=== PATIENT | female | born 1960 | race African-American/Black ===

== ENCOUNTER 2017-03-03 17:43 | Emergency (ER) | payer MEDICAID, OTHER ==
[~2017-03-03] VITALS: Ht 162.6 cm; Wt 140.0 kg
[~2017-03-03 17:43] MED LIST: HYDR25TA PO; MECL-127 PO
[2017-03-03] MEDS ORDERED: SODIUM CHLORIDE 0.9% 1,000 ML IV ONE (22:15)
[2017-03-03 22:25] VITALS: BP 123/88
[2017-03-03 23:16] LABS: BASOPHILS % 0.7 % (0.0-2.0); DIFFERENTIAL COMMENT 0; EOSINOPHILS % 1.5 % (0.0-5.0); HEMATOCRIT. 35.9 % (36.0-48.0); LYMPHOCYTES % 25.9 % (20.0-50.0); MEAN CORPUSCULAR HEMOGLOBIN 36.5 pg (28.0-32.0); MEAN CORPUSCULAR HGB CONC 33.4 g/dL (31.0-37.0); MEAN CORPUSCULAR VOLUME 109.3 fL (81.0-99.0); MEAN PLATELET VOLUME 6.9 fl (7.4-10.4); MONOCYTES % 11.5 % (2.0-8.0); NEUTROPHILS % 60.4 % (40.0-76.0); PLATELET 153 x1000/uL (130-400); RED BLOOD CELL COUNT 3.29 mill/uL (4.2-5.4); RED CELL DISTRIBUTION WIDTH 13.4 % (11.6-14.6); WHITE BLOOD COUNT 5.6 x1000/uL (4.5-11.0)
[2017-03-03 23:26] LABS: ALANINE AMINOTRANSFERASE 24 IU/L (13-61); ALBUMIN 3.1 g/dL (3.4-5.0); ANION GAP 13; CARBON DIOXIDE 25 mEq/L (21-32); CHLORIDE 110 mEq/L (98-107); INDEX HEMOLYSI 1 (1-3); INDEX ICTERIC 1 (1-4); INDEX LIPEMIC 1 (1-3); UREA NITROGEN BLOOD 6 mg/dL (7-21); eGFR > 60 mL/min (>60)
== END 2017-03-04 01:08 | disposition home or self-care (01) ==
LOC: ER 17:43
DX: S06.0X9A Concussion with loss of consciousness of unspecified duration, initial encounter (principal); Z79.899 Other long term (current) drug therapy; W01.0XXA Fall on same level from slipping, tripping and stumbling without subsequent striking against object, initial encounter; Y93.89 Activity, other specified; Y92.89 Other specified places as the place of occurrence of the external cause; Y99.8 Other external cause status
CPT/HCPCS: 36415; 70450; 80053; 85025; 96360; 96361; 99285; J7030

== ENCOUNTER 2023-09-15 08:36 | Inpatient (IN) | payer OTHER ==
[~2023-09-15] VITALS: Ht 161.5 cm; Wt 52.2 kg
[2023-09-15] VITALS (10 sets, daily range): BP systolic 96–125; BP diastolic 67–89; PULSE 83–113; RESP 10–28; TEMP 96.8
[2023-09-15] MEDS ORDERED: SODIUM CHLORIDE 0.9% 1000ML BAG (SEPSIS BOLUS) IV ONE (09:00)
[2023-09-15] MEDS ORDERED: MORPHINE SULFATE 2 MG/ML CPJ (NOT FOR IM USE) IV ONE (09:00)
[2023-09-15] MEDS ORDERED: ONDANSETRON HCL 4MG/2ML INJ IV ONE (09:00)
[2023-09-15 10:41] LABS: HEMATOCRIT. 29.1 % (36.0-48.0); HEMOGLOBIN. 9.9 g/dL (12.0-16.0); MEAN CORPUSCULAR HEMOGLOBIN 36.7 pg (28.0-32.0); MEAN PLATELET VOLUME 6.1 fl (7.4-10.4); PLATELET 189 x1000/uL (130-400); RED CELL DISTRIBUTION WIDTH 14.1 % (11.6-14.6)
[2023-09-15 10:51] LABS: CHLORIDE 99 mEq/L (98-107); INDEX HEMOLYSI 1 (1-3); INDEX ICTERIC 1 (1-4); INDEX LIPEMIC 1 (1-3); SODIUM 134 mEq/L (136-145); UREA NITROGEN BLOOD 17 mg/dL (7-21)
[2023-09-15 11:01] LABS: ALANINE AMINOTRANSFERASE 8 IU/L (13-61); ALBUMIN 1.7 g/dL (3.4-5.0); ASPARTATE AMINOTRANSFERASE 11 IU/L (15-37); BILIRUBIN TOTAL 1.2 mg/dL (0.1-1.0); CALCIUM 8.2 mg/dL (8.5-10.1); CARBON DIOXIDE 27 mEq/L (21-32); CREATININE 0.4 mg/dL (0.6-1.3); GLUCOSE 91 mg/dL (70-105); PROTEIN TOTAL 4.8 g/dL (6.0-8.3); TROPONIN I HIGH SENSITIVITY 4 ng/L (<54)
[2023-09-15 11:02] LABS: DIFFERENTIAL COMMENT 1
[2023-09-15] MEDS ORDERED: LIDOCAINE HCL 1% 10 MG/ML 10ML VIAL ONE (11:09)
[2023-09-15 11:14] LABS: POTASSIUM 2.4 mEq/L (3.5-5.1)
[2023-09-15] MEDS ORDERED: POTASSIUM CHLORIDE INJ 40 MEQ in DEXT 5% WATER 250 ML IV ONE (11:30)
[2023-09-15] MEDS: KCL 20MEQ/100ML X 2 FOR TOTAL KCL 40MEQ/200ML IV SCH ×2 (12:06→13:45)
[2023-09-15 12:10] LABS: PLATELET ESTIMATE NORMAL
[2023-09-15 12:49] LABS: CLARITY URINE CLEAR (CLEAR); COLOR URINE DARK YELLOW (YELLOW); GLUCOSE URINE NEGATIVE (NEGATIVE); KETONES URINE NEGATIVE (NEGATIVE); LEUKOCYTE ESTERASE URINE 1+ (NEGATIVE); NITRITE URINE POSITIVE (NEGATIVE); OCCULT BLOOD URINE NEGATIVE (NEGATIVE); PROTEIN URINE 2+ (NEGATIVE); SPECIFIC GRAVITY URINE 1.033 (1.005-1.030)
[2023-09-15 12:49] LABS: LACTIC ACID 2.2 mmol/L (0.4-2.0)
[2023-09-15 12:51] LABS: SQUAMOUS EPITHELIAL CELL URINE NONE SEEN /lpf (RARE/1+); YEAST URINE NONE SEEN
[2023-09-15] MEDS ORDERED: NOREPINEPHRINE 8MG/250ML PMX 250 ML IV STA (13:08)
[2023-09-15 13:19] LABS: BACTERIA URINE FEW; RBC URINE 0-2 /hpf (0-2); WBC URINE 0-2 /hpf (0-2)
[2023-09-15] MEDS ORDERED: BUPIVACAINE HCL/PF 0.5% (5MG/ML) 10ML ONE (16:13)
[2023-09-15] MEDS ORDERED: ONDANSETRON HCL 4MG/2ML INJ ONE (16:18)
[2023-09-15] MEDS ORDERED: DEXAMETHASONE 4MG/ML 1ML VIAL ONE (16:18)
[2023-09-15] MEDS ORDERED: CEFAZOLIN SODIUM 1000MG/VIAL ONE (16:18)
[2023-09-15] MEDS ORDERED: ROCURONIUM BROMIDE 10MG/ML VIAL 5ML IV ONE ×2 (16:18→16:23)
[2023-09-15] MEDS ORDERED: METOCLOPRAMIDE HCL 10MG/2ML VIAL ONE (16:18)
[2023-09-15] MEDS ORDERED: NEOSTIGMINE METHYLSULFATE 1MG/ML 10 ML VIAL ONE (16:19)
[2023-09-15] MEDS ORDERED: GLYCOPYRROLATE 0.2 MG/ML 2ML VIAL ONE (16:20)
[2023-09-15] MEDS ORDERED: PHENYLEPHRINE HCL 10 MG/ML 1ML (IV VIAL) IV ONE (16:20)
[2023-09-15] MEDS ORDERED: PROPOFOL 200MG/20ML VIAL IV ONE (16:20)
[2023-09-15] MEDS ORDERED: FENTANYL CITRATE/PF 50MCG/ML 2ML VIAL ONE (16:20)
[2023-09-15] MEDS ORDERED: LIDOCAINE HCL 1% 20ML VIAL (Pyxis) INJ ONE (16:21)
[2023-09-15] MEDS ORDERED: HYDROMORPHONE HCL/PF 2MG/ML CPJ ONE (16:22)
[2023-09-15] MEDS ORDERED: ALBUMIN HUMAN 12.5G/250ML (5%) IV ONE ×2 (17:32→19:07)
[2023-09-15] MEDS ORDERED: MORPHINE SULFATE 4 MG/ML CPJ (NOT FOR IM USE) IV PRN (19:00)
[2023-09-15] MEDS ORDERED: ONDANSETRON HCL 4MG/2ML INJ IV PRN (19:00)
[2023-09-15] MEDS ORDERED: MORPHINE SULFATE 2 MG/ML CPJ (NOT FOR IM USE) IV PRN (19:00)
[2023-09-15] MEDS ORDERED: NALOXONE HCL 0.4MG/ML VIAL IV PRN (19:00)
[2023-09-15] MEDS ORDERED: PROPOFOL 10MG/ML 100ML 100 ML IV PRN ×2 (19:30→22:15)
[2023-09-15] MEDS ORDERED: HYDROMORPHONE HCL/PF 2MG/ML CPJ IV PRN (19:30)
[2023-09-15] MEDS ORDERED: FENTANYL CITRATE/PF 50MCG/ML 2ML VIAL IV PRN (19:30)
[2023-09-15] MEDS ORDERED: DEXT 5%/0.45% NACL KCL 20MEQ/L 1,000 ML IV SCH (20:00)
[2023-09-15 20:17] LABS: BG BASE EXCESS -12.2 mmol/L (-2.0-2.0); BG CARBOXYHEMOGLOBIN 0.4 % (0.5-1.5); BG DEOXYHEMOGLOBIN 1.4 % (0.0-5.0); BG FRACTION INSPIRED OXYGEN 50; BG HCO3 ACT 17.4 mmol/L (22.0-26.0); BG METHEMOGLOBIN 0.7 % (0.0-1.5); BG OXYGEN SATURATION 98.6 % (92.0-98.5); BG OXYHEMOGLOBIN 97.5 % (94.0-97.0); BG PCO2 62.6 mmHg (35.0-45.0); BG PH 7.063 (7.350-7.450); BG PO2 195.4 mmHg (75.0-100.0); BG SAMPLE SITE RIGHT FEMORAL; BG TOTAL HEMOGLOBIN 7.7 g/dL (12.0-18.0); BG TOTAL RESPIRATORY RATE 10 b/min
[2023-09-15] MEDS ORDERED: SODIUM BICARBONATE 8.4% 1 MEQ/ML 50ML SYR IV NR (20:45)
[2023-09-15 21:33] LABS: BG VENT MODE VENT - SIMV
[2023-09-15] MEDS ORDERED: IPRATROPIUM/ALBUTEROL 0.5-3(2.5)MG/3ML NEB HHN PRN (22:00)
[2023-09-15 23:17] LABS: BG BASE EXCESS -2.5 mmol/L (-2.0-2.0); BG CARBOXYHEMOGLOBIN 0.3 % (0.5-1.5); BG FRACTION INSPIRED OXYGEN 40; BG HCO3 ACT 20.7 mmol/L (22.0-26.0); BG METHEMOGLOBIN 0.4 % (0.0-1.5); BG OXYHEMOGLOBIN 98.3 % (94.0-97.0); BG PCO2 29.1 mmHg (35.0-45.0); BG PH 7.469 (7.350-7.450); BG PO2 206.3 mmHg (75.0-100.0); BG SAMPLE SITE RIGHT BRACHIAL; BG VENT MODE VENT - AC
[2023-09-15 23:47] LABS: CALCIUM 7.1 mg/dL (8.5-10.1); CHLORIDE 110 mEq/L (98-107); INDEX HEMOLYSI 2 (1-3); INDEX ICTERIC 1 (1-4); INDEX LIPEMIC 1 (1-3); SODIUM 141 mEq/L (136-145)
[2023-09-15 23:53] LABS: CARBON DIOXIDE 22 mEq/L (21-32); CREATININE 0.3 mg/dL (0.6-1.3); GLUCOSE 104 mg/dL (70-105); UREA NITROGEN BLOOD 15 mg/dL (7-21)
[2023-09-16] VITALS (51 sets, daily range): BP systolic 87–136; BP diastolic 66–97; PULSE 85–131; RESP 15–28; TEMP 97.4–98.8; O2SAT 98
[2023-09-16] MEDS: PANTOPRAZOLE SODIUM 40 MG/VIAL IV SCH ×2 (00:01→09:37)
[2023-09-16 00:06] LABS: HEMATOCRIT. 23.7 % (36.0-48.0); HEMOGLOBIN. 7.6 g/dL (12.0-16.0); MEAN CORPUSCULAR HEMOGLOBIN 36.2 pg (28.0-32.0); MEAN CORPUSCULAR HGB CONC 32.3 g/dL (31.0-37.0); MEAN CORPUSCULAR VOLUME 112.1 fL (81.0-99.0); MEAN PLATELET VOLUME 6.5 fl (7.4-10.4); PLATELET 135 x1000/uL (130-400); RED BLOOD CELL COUNT 2.11 mill/uL (4.2-5.4); RED CELL DISTRIBUTION WIDTH 14.6 % (11.6-14.6); WHITE BLOOD COUNT 2.2 x1000/uL (4.5-11.0)
[2023-09-16 00:13] LABS: DIFFERENTIAL COMMENT 1
[2023-09-16 00:55] LABS: PLATELET ESTIMATE NORMAL
[2023-09-16] MEDS: IPRATROPIUM/ALBUTEROL 0.5-3(2.5)MG/3ML NEB HHN SCH ×4 (01:45→20:14)
[2023-09-16 05:54] LABS: HEMATOCRIT. 22.7 % (36.0-48.0); HEMOGLOBIN. 7.4 g/dL (12.0-16.0); MEAN CORPUSCULAR HEMOGLOBIN 35.8 pg (28.0-32.0); MEAN CORPUSCULAR HGB CONC 32.7 g/dL (31.0-37.0); MEAN CORPUSCULAR VOLUME 109.5 fL (81.0-99.0); MEAN PLATELET VOLUME 6.8 fl (7.4-10.4); PLATELET 113 x1000/uL (130-400); RED BLOOD CELL COUNT 2.08 mill/uL (4.2-5.4); RED CELL DISTRIBUTION WIDTH 14.1 % (11.6-14.6)
[2023-09-16 05:58] LABS: CHLORIDE 109 mEq/L (98-107); INDEX HEMOLYSI 1 (1-3); INDEX ICTERIC 1 (1-4); INDEX LIPEMIC 1 (1-3); POTASSIUM 2.9 mEq/L (3.5-5.1); SODIUM 140 mEq/L (136-145)
[2023-09-16 06:04] LABS: CALCIUM 7.3 mg/dL (8.5-10.1); CARBON DIOXIDE 22 mEq/L (21-32); CREATININE 0.4 mg/dL (0.6-1.3); GLUCOSE 136 mg/dL (70-105); TRIGLYCERIDE 40 mg/dL (0-150); UREA NITROGEN BLOOD 13 mg/dL (7-21)
[2023-09-16 06:09] LABS: DIFFERENTIAL COMMENT 1
[2023-09-16] MEDS: DEXT 5%/0.45% NACL KCL 20MEQ/L 1,000 ML IV SCH ×2 (07:30→18:30)
[2023-09-16 08:24] LABS: BG BASE EXCESS -1.5 mmol/L (-2.0-2.0); BG CARBOXYHEMOGLOBIN 0.3 % (0.5-1.5); BG DEOXYHEMOGLOBIN 1.4 % (0.0-5.0); BG HCO3 ACT 21.5 mmol/L (22.0-26.0); BG METHEMOGLOBIN 0.3 % (0.0-1.5); BG OXYGEN SATURATION 98.6 % (92.0-98.5); BG PCO2 29.7 mmHg (35.0-45.0); BG PH 7.478 (7.350-7.450); BG PO2 152.4 mmHg (75.0-100.0); BG SAMPLE SITE RIGHT BRACHIAL; BG TOTAL HEMOGLOBIN 8.6 g/dL (12.0-18.0); BG VENT MODE VENT - AC
[2023-09-16 12:59] LABS: NUCLEATED RED BLOOD CELLS 1 /100 WBC
[2023-09-16 13:01] LABS: PLATELET ESTIMATE DECREASED
[2023-09-16] MEDS ORDERED: POTASSIUM CHLORIDE INJ 40 MEQ in DEXT 5% WATER 250 ML IV ONE (13:30)
[2023-09-16 13:45] LABS: BG BASE EXCESS -1.8 mmol/L (-2.0-2.0); BG CARBOXYHEMOGLOBIN 0.2 % (0.5-1.5); BG HCO3 ACT 21.2 mmol/L (22.0-26.0); BG METHEMOGLOBIN 0.4 % (0.0-1.5); BG OXYHEMOGLOBIN 97.4 % (94.0-97.0); BG PCO2 29.8 mmHg (35.0-45.0); BG PH 7.471 (7.350-7.450); BG PO2 139.8 mmHg (75.0-100.0); BG SAMPLE SITE RIGHT BRACHIAL; BG TOTAL HEMOGLOBIN 9.6 g/dL (12.0-18.0); BG VENT MODE VENT - CPAP
[2023-09-16] MEDS: KCL 20MEQ/100ML X 2 FOR TOTAL KCL 40MEQ/200ML IV SCH ×2 (16:00→18:53)
[2023-09-16 17:43] LABS: HEPATITIS B SURFACE ANTIGEN NEGATIVE
[2023-09-16 18:11] LABS: HEPATITIS C VIR.AB 0.07 INDEXVAL (0.00-0.80)
[2023-09-16 18:12] LABS: HEPATITIS B CORE AB IGM NEGATIVE
[2023-09-16 22:22] LABS: HEPATITIS A AB IGM NEGATIVE (NEGATIVE)
[2023-09-17] VITALS (11 sets, daily range): BP systolic 87–111; BP diastolic 55–72; PULSE 60–112; RESP 18–20; TEMP 96.4–98.4; O2SAT 96
[2023-09-17] MEDS: DEXT 5%/0.45% NACL KCL 20MEQ/L 1,000 ML IV SCH ×3 (01:04→23:30)
[2023-09-17] MEDS: IPRATROPIUM/ALBUTEROL 0.5-3(2.5)MG/3ML NEB HHN SCH ×4 (02:34→21:02)
[2023-09-17 07:21] LABS: CHLORIDE 111 mEq/L (98-107); INDEX HEMOLYSI 1 (1-3); INDEX ICTERIC 1 (1-4); INDEX LIPEMIC 1 (1-3); SODIUM 139 mEq/L (136-145)
[2023-09-17 07:23] LABS: HEMATOCRIT. 23.9 % (36.0-48.0); HEMOGLOBIN. 7.9 g/dL (12.0-16.0); MEAN CORPUSCULAR HEMOGLOBIN 33.6 pg (28.0-32.0); MEAN CORPUSCULAR VOLUME 101.7 fL (81.0-99.0); MEAN PLATELET VOLUME 7.1 fl (7.4-10.4); RED BLOOD CELL COUNT 2.35 mill/uL (4.2-5.4)
[2023-09-17 07:35] LABS: ALANINE AMINOTRANSFERASE 9 IU/L (13-61); ALBUMIN 1.5 g/dL (3.4-5.0); ASPARTATE AMINOTRANSFERASE 16 IU/L (15-37); BILIRUBIN TOTAL 0.8 mg/dL (0.1-1.0); CARBON DIOXIDE 21 mEq/L (21-32); CREATININE 0.3 mg/dL (0.6-1.3); GLUCOSE 80 mg/dL (70-105); PROTEIN TOTAL 4.2 g/dL (6.0-8.3); UREA NITROGEN BLOOD 11 mg/dL (7-21)
[2023-09-17 07:52] LABS: DIFFERENTIAL COMMENT 1; PHOSPHORUS 0.9 mg/dL (2.5-4.9)
[2023-09-17] MEDS: PANTOPRAZOLE SODIUM 40 MG/VIAL IV SCH (09:19)
[2023-09-17] MEDS ORDERED: SODIUM PHOS,M-BASIC-D-BASIC 20 MM in DEXT 5% WATER 243.3333 ML IV NR (09:30)
[2023-09-17 15:41] LABS: PLATELET 48 x1000/uL (130-400); PLATELET ESTIMATE MARKEDLY DECREASED
[2023-09-17] MEDS: CEFEPIME 2,000 MG in DEXT 5% WATER 100 ML IV SCH (16:13)
[2023-09-17] MEDS: METRONIDAZOLE 500 MG PREMIX 100 ML IV SCH (16:13)
[2023-09-17 21:11] LABS: D-DIMER 21.43 mg/L FEU (<0.50); INR 1.2; PROTHROMBIN TIME 12.3 sec (9.6-11.0)
[2023-09-18] VITALS (12 sets, daily range): BP systolic 98–112; BP diastolic 56–80; PULSE 87–126; RESP 18–20; TEMP 96.4–98.6
[2023-09-18] MEDS: METRONIDAZOLE 500 MG PREMIX 100 ML IV SCH ×3 (05:06→18:21)
[2023-09-18] MEDS: MICAFUNGIN 100 MG in SODIUM CHLORIDE 0.9% 100 ML IV SCH (05:10)
[2023-09-18] MEDS: CEFEPIME 2,000 MG in DEXT 5% WATER 100 ML IV SCH ×2 (06:44→18:21)
[2023-09-18] MEDS: IPRATROPIUM/ALBUTEROL 0.5-3(2.5)MG/3ML NEB HHN SCH ×3 (09:23→21:17)
[2023-09-18] MEDS: PANTOPRAZOLE SODIUM 40 MG/VIAL IV SCH (10:15)
[2023-09-18] MEDS: DEXT 5%/0.45% NACL KCL 20MEQ/L 1,000 ML IV SCH ×2 (10:15→18:22)
[2023-09-18 17:49] LABS: EOSINOPHILS % 0.6 % (0.0-5.0); HEMATOCRIT. 26.1 % (36.0-48.0); HEMOGLOBIN. 8.6 g/dL (12.0-16.0); LYMPHOCYTES % 8.2 % (20.0-50.0); MEAN CORPUSCULAR HEMOGLOBIN 33.7 pg (28.0-32.0); MEAN CORPUSCULAR HGB CONC 33.1 g/dL (31.0-37.0); MEAN CORPUSCULAR VOLUME 101.9 fL (81.0-99.0); MEAN PLATELET VOLUME 7.5 fl (7.4-10.4); MONOCYTES % 2.4 % (2.0-8.0); NEUTROPHILS % 88.8 % (40.0-76.0); RED BLOOD CELL COUNT 2.56 mill/uL (4.2-5.4); RED CELL DISTRIBUTION WIDTH 19.4 % (11.6-14.6); WHITE BLOOD COUNT 2.7 x1000/uL (4.5-11.0)
[2023-09-18 18:13] LABS: CHLORIDE 112 mEq/L (98-107); INDEX HEMOLYSI 1 (1-3); INDEX ICTERIC 1 (1-4); INDEX LIPEMIC 1 (1-3); POTASSIUM 3.5 mEq/L (3.5-5.1); SODIUM 140 mEq/L (136-145)
[2023-09-18 18:21] LABS: ALANINE AMINOTRANSFERASE 14 IU/L (13-61); ALBUMIN 1.4 g/dL (3.4-5.0); ASPARTATE AMINOTRANSFERASE 14 IU/L (15-37); BILIRUBIN TOTAL 1.1 mg/dL (0.1-1.0); CALCIUM 7.9 mg/dL (8.5-10.1); CARBON DIOXIDE 21 mEq/L (21-32); CREATININE 0.3 mg/dL (0.6-1.3); GLUCOSE 66 mg/dL (70-105); PROTEIN TOTAL 4.3 g/dL (6.0-8.3); UREA NITROGEN BLOOD 9 mg/dL (7-21)
[2023-09-18 18:30] LABS: DIFFERENTIAL COMMENT 1
[2023-09-18 18:34] LABS: PLATELET 17 x1000/uL (130-400)
[2023-09-19] VITALS (9 sets, daily range): BP systolic 100–112; BP diastolic 64–74; PULSE 86–109; RESP 16–20; TEMP 96.6–97.7; O2SAT 99
[2023-09-19] MEDS: IPRATROPIUM/ALBUTEROL 0.5-3(2.5)MG/3ML NEB HHN SCH ×4 (01:50→20:24)
[2023-09-19] MEDS: MICAFUNGIN 100 MG in SODIUM CHLORIDE 0.9% 100 ML IV SCH (02:48)
[2023-09-19] MEDS: METRONIDAZOLE 500 MG PREMIX 100 ML IV SCH ×3 (02:48→18:20)
[2023-09-19] MEDS: CEFEPIME 2,000 MG in DEXT 5% WATER 100 ML IV SCH ×2 (05:13→18:20)
[2023-09-19 06:41] LABS: HEMATOCRIT. 23.3 % (36.0-48.0); MEAN CORPUSCULAR HEMOGLOBIN 34.4 pg (28.0-32.0); MEAN CORPUSCULAR HGB CONC 34.1 g/dL (31.0-37.0); MEAN PLATELET VOLUME 8.7 fl (7.4-10.4); RED BLOOD CELL COUNT 2.31 mill/uL (4.2-5.4); RED CELL DISTRIBUTION WIDTH 19.1 % (11.6-14.6)
[2023-09-19 07:50] LABS: CHLORIDE 112 mEq/L (98-107); POTASSIUM 3.1 mEq/L (3.5-5.1); SODIUM 140 mEq/L (136-145)
[2023-09-19 07:58] LABS: ALANINE AMINOTRANSFERASE 13 IU/L (13-61); ALBUMIN 1.4 g/dL (3.4-5.0); ASPARTATE AMINOTRANSFERASE 12 IU/L (15-37); BILIRUBIN TOTAL 0.8 mg/dL (0.1-1.0); CALCIUM 8.1 mg/dL (8.5-10.1); CARBON DIOXIDE 21 mEq/L (21-32); CREATININE 0.3 mg/dL (0.6-1.3); GLUCOSE 89 mg/dL (70-105); UREA NITROGEN BLOOD 8 mg/dL (7-21)
[2023-09-19 08:13] LABS: DIFFERENTIAL COMMENT 1
[2023-09-19 08:14] LABS: PLATELET 34 x1000/uL (130-400); WHITE BLOOD COUNT 1.9 x1000/uL (4.5-11.0)
[2023-09-19] MEDS: PANTOPRAZOLE SODIUM 40 MG/VIAL IV SCH (09:55)
[2023-09-19] MEDS: CYANOCOBALAMIN 1000MCG TABLET PO SCH (09:55)
[2023-09-19 17:32] LABS: ANISOCYTOSIS 1+; PLATELET ESTIMATE MARKEDLY DECREASED
[2023-09-19] MEDS: FLUCONAZOLE 400MG/200ML BAG 200 ML IV SCH (20:35)
[2023-09-20] VITALS (9 sets, daily range): BP systolic 80–120; BP diastolic 51–64; PULSE 59–94; RESP 16–20; TEMP 96.4–98.1
[2023-09-20] MEDS: METRONIDAZOLE 500 MG PREMIX 100 ML IV SCH ×3 (01:22→18:02)
[2023-09-20] MEDS: IPRATROPIUM/ALBUTEROL 0.5-3(2.5)MG/3ML NEB HHN SCH ×4 (01:57→18:00)
[2023-09-20] MEDS: DEXT 5%/0.45% NACL KCL 20MEQ/L 1,000 ML IV SCH ×3 (03:14→20:41)
[2023-09-20] MEDS: CEFEPIME 2,000 MG in DEXT 5% WATER 100 ML IV SCH ×2 (05:39→18:02)
[2023-09-20 06:08] LABS: HIV SCREEN 4G Non Reactive (Non Reactive)
[2023-09-20 07:29] LABS: HEMATOCRIT. 23.2 % (36.0-48.0); HEMOGLOBIN. 7.9 g/dL (12.0-16.0); MEAN CORPUSCULAR HEMOGLOBIN 34.6 pg (28.0-32.0); MEAN CORPUSCULAR HGB CONC 33.9 g/dL (31.0-37.0); MEAN CORPUSCULAR VOLUME 102.2 fL (81.0-99.0); MEAN PLATELET VOLUME 8.3 fl (7.4-10.4); RED BLOOD CELL COUNT 2.27 mill/uL (4.2-5.4); RED CELL DISTRIBUTION WIDTH 18.8 % (11.6-14.6)
[2023-09-20 08:32] LABS: CHLORIDE 113 mEq/L (98-107); INDEX HEMOLYSI 2 (1-3); INDEX ICTERIC 1 (1-4); INDEX LIPEMIC 1 (1-3); POTASSIUM 3.9 mEq/L (3.5-5.1); SODIUM 140 mEq/L (136-145)
[2023-09-20 08:39] LABS: ALANINE AMINOTRANSFERASE 13 IU/L (13-61); ALBUMIN 1.2 g/dL (3.4-5.0); ASPARTATE AMINOTRANSFERASE 9 IU/L (15-37); BILIRUBIN TOTAL 0.5 mg/dL (0.1-1.0); CALCIUM 8.1 mg/dL (8.5-10.1); CARBON DIOXIDE 22 mEq/L (21-32); CREATININE 0.3 mg/dL (0.6-1.3); GLUCOSE 121 mg/dL (70-105); PROTEIN TOTAL 3.8 g/dL (6.0-8.3); UREA NITROGEN BLOOD 5 mg/dL (7-21)
[2023-09-20] MEDS: CYANOCOBALAMIN 1000MCG TABLET PO SCH (08:52)
[2023-09-20] MEDS: PANTOPRAZOLE SODIUM 40 MG/VIAL IV SCH (08:52)
[2023-09-20 08:59] LABS: DIFFERENTIAL COMMENT 1; WHITE BLOOD COUNT 1.9 x1000/uL (4.5-11.0)
[2023-09-20 09:07] LABS: IMMUNOGLOBULIN A 313 mg/dL (87-352); IMMUNOGLOBULIN G 367 mg/dL (586-1602); IMMUNOGLOBULIN M 39 mg/dL (26-217)
[2023-09-20 12:20] LABS: ANISOCYTOSIS 2+; PLATELET 16 x1000/uL (130-400); PLATELET ESTIMATE MARKEDLY DECREASED
[2023-09-20] MEDS ORDERED: SODIUM CHLORIDE 0.9% 750 ML IV SCH (16:15)
[2023-09-20] MEDS: FLUCONAZOLE 400MG/200ML BAG 200 ML IV SCH (20:40)
[2023-09-21] VITALS: BP 105/72; PULSE 99; RESP 18; TEMP 97.5
[2023-09-21] MEDS: METRONIDAZOLE 500 MG PREMIX 100 ML IV SCH ×3 (01:33→17:34)
[2023-09-21] MEDS: IPRATROPIUM/ALBUTEROL 0.5-3(2.5)MG/3ML NEB HHN SCH (03:34)
[2023-09-21 04:00] VITALS: BP 100/63; PULSE 75; RESP 20; TEMP 96.5
[2023-09-21 05:38] LABS: CHLORIDE 113 mEq/L (98-107); INDEX HEMOLYSI 1 (1-3); INDEX ICTERIC 1 (1-4); INDEX LIPEMIC 1 (1-3); POTASSIUM 3.6 mEq/L (3.5-5.1); SODIUM 139 mEq/L (136-145)
[2023-09-21 05:39] LABS: BASOPHILS % 0.3 % (0.0-2.0); EOSINOPHILS % 1.8 % (0.0-5.0); HEMATOCRIT. 23.6 % (36.0-48.0); HEMOGLOBIN. 7.8 g/dL (12.0-16.0); LYMPHOCYTES % 12.6 % (20.0-50.0); MEAN CORPUSCULAR HEMOGLOBIN 33.9 pg (28.0-32.0); MEAN CORPUSCULAR HGB CONC 33.1 g/dL (31.0-37.0); MEAN CORPUSCULAR VOLUME 102.4 fL (81.0-99.0); MEAN PLATELET VOLUME 9.2 fl (7.4-10.4); NEUTROPHILS % 80.3 % (40.0-76.0); RED BLOOD CELL COUNT 2.31 mill/uL (4.2-5.4); RED CELL DISTRIBUTION WIDTH 18.7 % (11.6-14.6); WHITE BLOOD COUNT 2.3 x1000/uL (4.5-11.0)
[2023-09-21 05:46] LABS: ALANINE AMINOTRANSFERASE 9 IU/L (13-61); ALBUMIN 1.2 g/dL (3.4-5.0); ASPARTATE AMINOTRANSFERASE 9 IU/L (15-37); BILIRUBIN TOTAL 0.6 mg/dL (0.1-1.0); CALCIUM 7.8 mg/dL (8.5-10.1); CARBON DIOXIDE 19 mEq/L (21-32); CREATININE 0.2 mg/dL (0.6-1.3); GLUCOSE 80 mg/dL (70-105); PROTEIN TOTAL 3.7 g/dL (6.0-8.3); UREA NITROGEN BLOOD 5 mg/dL (7-21)
[2023-09-21] MEDS: CEFEPIME 2,000 MG in DEXT 5% WATER 100 ML IV SCH ×2 (06:10→17:34)
[2023-09-21] MEDS: DEXT 5%/0.45% NACL KCL 20MEQ/L 1,000 ML IV SCH ×2 (06:11→15:39)
[2023-09-21 06:12] LABS: DIFFERENTIAL COMMENT 1
[2023-09-21 06:13] LABS: PLATELET 15 x1000/uL (130-400)
[2023-09-21] MEDS: PANTOPRAZOLE SODIUM 40 MG/VIAL IV SCH (08:14)
[2023-09-21] MEDS: CYANOCOBALAMIN 1000MCG TABLET PO SCH (08:15)
[2023-09-21 08:49] VITALS: BP 101/60; PULSE 91; RESP 18; TEMP 98
[2023-09-21] MEDS ORDERED: GUAIFENESIN 600MG ER TABLET PO PRN (11:45)
[2023-09-21 12:00] VITALS: BP 96/64; PULSE 87; RESP 18; TEMP 98
[2023-09-21 15:53] VITALS: PULSE 72; RESP 22; O2SAT 96
[2023-09-21] MEDS: IPRATROPIUM/ALBUTEROL 0.5-3(2.5)MG/3ML NEB HHN PRN (15:53)
[2023-09-21 16:58] VITALS: BP 90/56; PULSE 78; RESP 18; TEMP 98.1
[2023-09-21] MEDS: FLUCONAZOLE 400MG/200ML BAG 200 ML IV SCH (20:45)
[2023-09-22] VITALS (80 sets, daily range): BP systolic 69–147; BP diastolic 52–109; PULSE 60–85; RESP 14–26; TEMP 96.6–99.1
[2023-09-22] MEDS: METRONIDAZOLE 500 MG PREMIX 100 ML IV SCH ×3 (01:41→21:25)
[2023-09-22] MEDS: CEFEPIME 2,000 MG in DEXT 5% WATER 100 ML IV SCH ×2 (05:13→21:24)
[2023-09-22] MEDS: DEXT 5%/0.45% NACL KCL 20MEQ/L 1,000 ML IV SCH ×2 (05:14→14:35)
[2023-09-22 07:21] LABS: BASOPHILS % 0.3 % (0.0-2.0); EOSINOPHILS % 1.1 % (0.0-5.0); HEMATOCRIT. 21.8 % (36.0-48.0); HEMOGLOBIN. 7.3 g/dL (12.0-16.0); LYMPHOCYTES % 20.3 % (20.0-50.0); MEAN CORPUSCULAR HEMOGLOBIN 33.8 pg (28.0-32.0); MEAN CORPUSCULAR HGB CONC 33.3 g/dL (31.0-37.0); MEAN CORPUSCULAR VOLUME 101.5 fL (81.0-99.0); MEAN PLATELET VOLUME 9.2 fl (7.4-10.4); MONOCYTES % 4.8 % (2.0-8.0); NEUTROPHILS % 73.5 % (40.0-76.0); RED BLOOD CELL COUNT 2.15 mill/uL (4.2-5.4); WHITE BLOOD COUNT 2.2 x1000/uL (4.5-11.0)
[2023-09-22] MEDS: IPRATROPIUM/ALBUTEROL 0.5-3(2.5)MG/3ML NEB HHN PRN (07:51)
[2023-09-22] MEDS ORDERED: SODIUM CHLORIDE 0.9% 1000ML BAG (SEPSIS BOLUS) IV ONE (08:00)
[2023-09-22 08:08] LABS: DIFFERENTIAL COMMENT 1
[2023-09-22 08:10] LABS: PLATELET 32 x1000/uL (130-400)
[2023-09-22] MEDS ORDERED: MORPHINE SULFATE 2 MG/ML CPJ (NOT FOR IM USE) IV PRN (08:15)
[2023-09-22] MEDS: PANTOPRAZOLE SODIUM 40 MG/VIAL IV SCH (08:22)
[2023-09-22] MEDS: CYANOCOBALAMIN 1000MCG TABLET PO SCH (08:54)
[2023-09-22 08:59] LABS: CHLORIDE 112 mEq/L (98-107); INDEX HEMOLYSI 1 (1-3); INDEX ICTERIC 1 (1-4); INDEX LIPEMIC 1 (1-3); POTASSIUM 4.3 mEq/L (3.5-5.1); SODIUM 137 mEq/L (136-145)
[2023-09-22 09:11] LABS: CALCIUM 7.5 mg/dL (8.5-10.1); CARBON DIOXIDE 18 mEq/L (21-32); CREATININE 0.3 mg/dL (0.6-1.3); GLUCOSE 111 mg/dL (70-105); UREA NITROGEN BLOOD 4 mg/dL (7-21)
[2023-09-22] MEDS ORDERED: NOREPINEPHRINE 8 MG in DEXT 5% WATER 242 ML IV PRN ×2 (10:15→11:00)
[2023-09-22] MEDS ORDERED: NOREPINEPHRINE 8 MG in SODIUM CHLORIDE 0.9% 242 ML IV SCH (10:30)
[2023-09-22 10:31] LABS: TROPONIN I HIGH SENSITIVITY 26 ng/L (<54)
[2023-09-22] MEDS: NOREPINEPHRINE 8MG/250ML PMX 250ML IV PRN ×2 (10:45→21:37)
[2023-09-22] MEDS ORDERED: SODIUM PHOS,M-BASIC-D-BASIC 30 MM in DEXT 5% WATER 500 ML IV ONE (11:00)
[2023-09-22] MEDS ORDERED: MAGNESIUM 4 G PREMIX 100 ML IV NR (11:00)
[2023-09-22] MEDS ORDERED: SODIUM BICARBONATE 8.4% 1 MEQ/ML 50ML SYR IV NR (12:00)
[2023-09-22] MEDS ORDERED: ALBUMIN HUMAN 12.5GM/50ML (25%) IV SCH (12:00)
[2023-09-22] MEDS ORDERED: ALBUMIN HUMAN 12.5GM/50ML (25%) IV NR (12:00)
[2023-09-22] MEDS ORDERED: VASOPRESSIN 20 UNIT in SODIUM CHLORIDE 0.9% 99 ML IV PRN (12:00)
[2023-09-22 12:01] LABS: BG BASE EXCESS -11.5 mmol/L (-2.0-2.0); BG CARBOXYHEMOGLOBIN 0.3 % (0.5-1.5); BG DEOXYHEMOGLOBIN 10.3 % (0.0-5.0); BG METHEMOGLOBIN 0.1 % (0.0-1.5); BG OXYGEN SATURATION 89.7 % (92.0-98.5); BG OXYHEMOGLOBIN 89.3 % (94.0-97.0); BG PCO2 42.7 mmHg (35.0-45.0); BG PH 7.191 (7.350-7.450); BG PO2 71.6 mmHg (75.0-100.0); BG SAMPLE SITE RIGHT RADIAL; BG TOTAL HEMOGLOBIN 9.2 g/dL (12.0-18.0); BG VENT MODE MASK - NRB
[2023-09-22] MEDS ORDERED: KETAMINE HCL 50 MG/ML 10ML IV NR (12:15)
[2023-09-22] MEDS ORDERED: MIDAZOLAM 100MG/100ML PMX 100 ML IV PRN (14:00)
[2023-09-22] MEDS ORDERED: FENTANYL 2500MCG/250ML PMX 250 ML IV ONE (14:00)
[2023-09-22 15:00] LABS: BG BASE EXCESS -6.9 mmol/L (-2.0-2.0); BG CARBOXYHEMOGLOBIN 0.3 % (0.5-1.5); BG DEOXYHEMOGLOBIN 9.1 % (0.0-5.0); BG FRACTION INSPIRED OXYGEN 60; BG HCO3 ACT 18.5 mmol/L (22.0-26.0); BG METHEMOGLOBIN 0.3 % (0.0-1.5); BG OXYGEN SATURATION 90.8 % (92.0-98.5); BG OXYHEMOGLOBIN 90.3 % (94.0-97.0); BG PCO2 36.9 mmHg (35.0-45.0); BG PH 7.319 (7.350-7.450); BG SAMPLE SITE RIGHT BRACHIAL; BG TOTAL HEMOGLOBIN 10.5 g/dL (12.0-18.0); BG VENT MODE VENT - AC
[2023-09-22] MEDS ORDERED: POTASSIUM PHOS,M-BASIC-D-BASIC 10 MMOL in DEXT 5% WATER 246.6667 ML IV NR (16:00)
[2023-09-22] MEDS: FENTANYL CITRATE 2,500 MCG in SODIUM CHLORIDE 0.9% 200 ML IV PRN (16:20)
[2023-09-22] MEDS: MIDAZOLAM HCL 100 MG in SODIUM CHLORIDE 0.9% 100 ML IV PRN (16:21)
[2023-09-22 18:37] LABS: HEMATOCRIT 30.4 % (36.0-48.0); HEMOGLOBIN 10.2 g/dL (12.0-16.0); MEAN CORPUSCULAR HGB CONC 33.6 g/dL (31.0-37.0); MEAN CORPUSCULAR VOLUME 95.2 fL (81.0-99.0); RED BLOOD CELL COUNT 3.19 mill/uL (4.2-5.4); RED CELL DISTRIBUTION WIDTH 18.5 % (11.6-14.6); WHITE BLOOD COUNT 3.1 x1000/uL (4.5-11.0)
[2023-09-22 18:41] LABS: PLATELET 14 x1000/uL (130-400)
[2023-09-22] MEDS: IPRATROPIUM/ALBUTEROL 0.5-3(2.5)MG/3ML NEB HHN SCH (20:00)
[2023-09-22] MEDS: FLUCONAZOLE 400MG/200ML BAG 200 ML IV SCH (20:46)
[2023-09-23] VITALS (103 sets, daily range): BP systolic 87–124; BP diastolic 45–102; PULSE 67–120; RESP 21–28; TEMP 97–98.7
[2023-09-23] MEDS: DEXT 5%/0.45% NACL KCL 20MEQ/L 1,000 ML IV SCH ×2 (00:49→09:43)
[2023-09-23] MEDS: CYANOCOBALAMIN 1000MCG TABLET PO SCH (03:50)
[2023-09-23] MEDS: METRONIDAZOLE 500 MG PREMIX 100 ML IV SCH ×3 (05:34→22:41)
[2023-09-23] MEDS ORDERED: IOHEXOL-350 100 ML BOTTLE ONE (06:32)
[2023-09-23] MEDS: IPRATROPIUM/ALBUTEROL 0.5-3(2.5)MG/3ML NEB HHN SCH ×3 (07:54→19:51)
[2023-09-23 09:03] LABS: BG BASE EXCESS -9.3 mmol/L (-2.0-2.0); BG CARBOXYHEMOGLOBIN 0.9 % (0.5-1.5); BG DEOXYHEMOGLOBIN 1.7 % (0.0-5.0); BG FRACTION INSPIRED OXYGEN 60; BG HCO3 ACT 14.8 mmol/L (22.0-26.0); BG METHEMOGLOBIN 0.2 % (0.0-1.5); BG OXYGEN SATURATION 98.3 % (92.0-98.5); BG OXYHEMOGLOBIN 97.2 % (94.0-97.0); BG PCO2 27.5 mmHg (35.0-45.0); BG PEEP (cmH2O) 0 cmH2O; BG PH 7.349 (7.350-7.450); BG SAMPLE SITE RIGHT RADIAL; BG TOTAL HEMOGLOBIN 12.9 g/dL (12.0-18.0); BG VENT MODE VENT - AC
[2023-09-23 09:22] LABS: HEMATOCRIT. 38.7 % (36.0-48.0); HEMOGLOBIN. 13.1 g/dL (12.0-16.0); MEAN CORPUSCULAR HEMOGLOBIN 32.2 pg (28.0-32.0); MEAN CORPUSCULAR HGB CONC 33.9 g/dL (31.0-37.0); MEAN PLATELET VOLUME 10.4 fl (7.4-10.4); RED BLOOD CELL COUNT 4.08 mill/uL (4.2-5.4)
[2023-09-23 09:24] LABS: DIFFERENTIAL COMMENT 1
[2023-09-23 09:28] LABS: PLATELET 34 x1000/uL (130-400)
[2023-09-23] MEDS: CEFEPIME 2,000 MG in DEXT 5% WATER 100 ML IV SCH ×2 (09:43→21:30)
[2023-09-23] MEDS: PANTOPRAZOLE SODIUM 40 MG/VIAL IV SCH (09:43)
[2023-09-23 11:56] LABS: NUCLEATED RED BLOOD CELLS 1 /100 WBC
[2023-09-23 11:57] LABS: PLATELET ESTIMATE MARKEDLY DECREASED
[2023-09-23 11:58] LABS: ANISOCYTOSIS 1+
[2023-09-23 13:54] LABS: CHLORIDE 113 mEq/L (98-107); INDEX HEMOLYSI 4 (1-3); INDEX ICTERIC 1 (1-4); INDEX LIPEMIC 1 (1-3); SODIUM 136 mEq/L (136-145)
[2023-09-23 13:56] LABS: CALCIUM 7.6 mg/dL (8.5-10.1)
[2023-09-23 14:00] LABS: CARBON DIOXIDE 15 mEq/L (21-32); CREATININE 0.1 mg/dL (0.6-1.3); GLUCOSE 204 mg/dL (70-105); PHOSPHORUS 1.4 mg/dL (2.5-4.9); UREA NITROGEN BLOOD 5 mg/dL (7-21)
[2023-09-23 14:02] LABS: POTASSIUM 4.2 mEq/L (3.5-5.1)
[2023-09-23] MEDS: NOREPINEPHRINE 8MG/250ML PMX 250ML IV PRN (17:03)
[2023-09-23] MEDS: FLUCONAZOLE 400MG/200ML BAG 200 ML IV SCH (20:22)
[2023-09-23 20:48] LABS: HEMATOCRIT 45.5 % (36.0-48.0); HEMOGLOBIN 15.1 g/dL (12.0-16.0); MEAN CORPUSCULAR HEMOGLOBIN 31.7 pg (28.0-32.0); MEAN CORPUSCULAR HGB CONC 33.1 g/dL (31.0-37.0); MEAN CORPUSCULAR VOLUME 95.7 fL (81.0-99.0); RED BLOOD CELL COUNT 4.76 mill/uL (4.2-5.4); WHITE BLOOD COUNT 4.7 x1000/uL (4.5-11.0)
[2023-09-23 20:54] LABS: PLATELET 39 x1000/uL (130-400)
[2023-09-23 21:21] LABS: BODY FLUID RBC 10 /cu mm (0-2000); BODY FLUID WBC 110 /cu mm (0-200)
[2023-09-23 21:22] LABS: BODY FLUID MONOCYTES 3 %
[2023-09-24] VITALS (113 sets, daily range): BP systolic 69–109; BP diastolic 23–95; PULSE 67–120; RESP 24–33; TEMP 97.6–97.9
[2023-09-24] MEDS: IPRATROPIUM/ALBUTEROL 0.5-3(2.5)MG/3ML NEB HHN SCH ×4 (02:05→20:36)
[2023-09-24 04:20] LABS: HEMATOCRIT. 42.5 % (36.0-48.0); HEMOGLOBIN. 14.5 g/dL (12.0-16.0); MEAN CORPUSCULAR HEMOGLOBIN 32.5 pg (28.0-32.0); MEAN CORPUSCULAR HGB CONC 34.2 g/dL (31.0-37.0); MEAN PLATELET VOLUME 9.6 fl (7.4-10.4); RED BLOOD CELL COUNT 4.47 mill/uL (4.2-5.4); RED CELL DISTRIBUTION WIDTH 19.4 % (11.6-14.6); WHITE BLOOD COUNT 3.2 x1000/uL (4.5-11.0)
[2023-09-24 04:31] LABS: INDEX HEMOLYSI 4 (1-3)
[2023-09-24 04:39] LABS: LACTATE DEHYDROGENASE 257 IU/L (100-240)
[2023-09-24 05:17] LABS: DIFFERENTIAL COMMENT 1; PLATELET 24 x1000/uL (130-400)
[2023-09-24] MEDS: METRONIDAZOLE 500 MG PREMIX 100 ML IV SCH ×3 (05:29→23:00)
[2023-09-24] MEDS: NOREPINEPHRINE 8MG/250ML PMX 250ML IV PRN ×2 (05:55→16:09)
[2023-09-24] MEDS: CYANOCOBALAMIN 1000MCG TABLET PO SCH (06:42)
[2023-09-24] MEDS: PANTOPRAZOLE SODIUM 40 MG/VIAL IV SCH (08:27)
[2023-09-24] MEDS: CEFEPIME 2,000 MG in DEXT 5% WATER 100 ML IV SCH ×2 (08:27→21:24)
[2023-09-24] MEDS: PHENYLEPHRINE 100 MG in DEXT 5% WATER 240 ML IV PRN ×2 (09:36→22:14)
[2023-09-24 09:41] LABS: BG BASE EXCESS -12.1 mmol/L (-2.0-2.0); BG CARBOXYHEMOGLOBIN 0.6 % (0.5-1.5); BG DEOXYHEMOGLOBIN 7.8 % (0.0-5.0); BG HCO3 ACT 16.1 mmol/L (22.0-26.0); BG METHEMOGLOBIN 0.3 % (0.0-1.5); BG OXYGEN SATURATION 92.1 % (92.0-98.5); BG OXYHEMOGLOBIN 91.3 % (94.0-97.0); BG PCO2 44.2 mmHg (35.0-45.0); BG PH 7.178 (7.350-7.450); BG PO2 74.8 mmHg (75.0-100.0); BG SAMPLE SITE RIGHT RADIAL; BG TOTAL HEMOGLOBIN 15.9 g/dL (12.0-18.0); BG VENT MODE VENT - AC
[2023-09-24] MEDS ORDERED: SODIUM BICARBONATE 8.4% 1 MEQ/ML 50ML SYR IV NR (09:45)
[2023-09-24 10:29] LABS: ANISOCYTOSIS 1+; NUCLEATED RED BLOOD CELLS 2 /100 WBC; PLATELET ESTIMATE MARKEDLY DECREASED
[2023-09-24] MEDS: FUROSEMIDE 40MG/4ML VIAL IVP SCH (11:58)
[2023-09-24] MEDS ORDERED: SODIUM PHOS,M-BASIC-D-BASIC 15 MM in DEXT 5% WATER 245 ML IV NR (13:00)
[2023-09-24] MEDS: SODIUM BICARBONATE 100 MEQ in DEXTROSE 5% WATER 1,000 ML IV SCH (14:40)
[2023-09-24] MEDS: MIDAZOLAM HCL 100 MG in SODIUM CHLORIDE 0.9% 100 ML IV PRN (16:38)
[2023-09-24] MEDS: FENTANYL CITRATE 2,500 MCG in SODIUM CHLORIDE 0.9% 200 ML IV PRN (16:39)
[2023-09-24 17:03] LABS: BG BASE EXCESS -8.4 mmol/L (-2.0-2.0); BG CARBOXYHEMOGLOBIN 0.3 % (0.5-1.5); BG DEOXYHEMOGLOBIN 0.6 % (0.0-5.0); BG FRACTION INSPIRED OXYGEN 100; BG HCO3 ACT 15.5 mmol/L (22.0-26.0); BG METHEMOGLOBIN 0.3 % (0.0-1.5); BG OXYGEN SATURATION 99.4 % (92.0-98.5); BG OXYHEMOGLOBIN 98.8 % (94.0-97.0); BG PCO2 28.3 mmHg (35.0-45.0); BG PH 7.357 (7.350-7.450); BG PO2 296.3 mmHg (75.0-100.0); BG SAMPLE SITE ALINE; BG TOTAL HEMOGLOBIN 14.2 g/dL (12.0-18.0); BG TOTAL RESPIRATORY RATE 28 b/min; BG VENT MODE VENT - AC
[2023-09-24] MEDS: FLUCONAZOLE 400MG/200ML BAG 200 ML IV SCH (22:00)
[2023-09-25] VITALS (97 sets, daily range): BP systolic 75–142; BP diastolic 34–116; PULSE 89–120; RESP 21–35; TEMP 96–98.3
[2023-09-25] MEDS: IPRATROPIUM/ALBUTEROL 0.5-3(2.5)MG/3ML NEB HHN SCH ×4 (01:30→20:24)
[2023-09-25 05:12] LABS: HEMATOCRIT. 37.3 % (36.0-48.0); HEMOGLOBIN. 12.7 g/dL (12.0-16.0); MEAN CORPUSCULAR HEMOGLOBIN 31.9 pg (28.0-32.0); RED BLOOD CELL COUNT 3.96 mill/uL (4.2-5.4); RED CELL DISTRIBUTION WIDTH 18.9 % (11.6-14.6); WHITE BLOOD COUNT 2.7 x1000/uL (4.5-11.0)
[2023-09-25 05:29] LABS: CHLORIDE 110 mEq/L (98-107); INDEX HEMOLYSI 1 (1-3); INDEX ICTERIC 1 (1-4); INDEX LIPEMIC 1 (1-3); POTASSIUM 3.6 mEq/L (3.5-5.1); SODIUM 141 mEq/L (136-145)
[2023-09-25 05:37] LABS: CARBON DIOXIDE 17 mEq/L (21-32); CREATININE 0.4 mg/dL (0.6-1.3); GLUCOSE 72 mg/dL (70-105); UREA NITROGEN BLOOD 8 mg/dL (7-21)
[2023-09-25] MEDS: NOREPINEPHRINE 8MG/250ML PMX 250ML IV PRN (06:31)
[2023-09-25] MEDS: METRONIDAZOLE 500 MG PREMIX 100 ML IV SCH (06:31)
[2023-09-25] MEDS: CYANOCOBALAMIN 1000MCG TABLET PO SCH (07:00)
[2023-09-25 07:18] LABS: DIFFERENTIAL COMMENT 1
[2023-09-25 07:21] LABS: PLATELET 9 x1000/uL (130-400)
[2023-09-25 08:04] LABS: BG BASE EXCESS -7.8 mmol/L (-2.0-2.0); BG CARBOXYHEMOGLOBIN 0.3 % (0.5-1.5); BG DEOXYHEMOGLOBIN 0.9 % (0.0-5.0); BG HCO3 ACT 16.3 mmol/L (22.0-26.0); BG METHEMOGLOBIN 0.3 % (0.0-1.5); BG OXYGEN SATURATION 99.1 % (92.0-98.5); BG OXYHEMOGLOBIN 98.5 % (94.0-97.0); BG PCO2 29.6 mmHg (35.0-45.0); BG PH 7.359 (7.350-7.450); BG PO2 231.8 mmHg (75.0-100.0); BG SAMPLE SITE ALINE; BG TOTAL HEMOGLOBIN 12.8 g/dL (12.0-18.0); BG VENT MODE VENT - AC
[2023-09-25] MEDS: SODIUM BICARBONATE 100 MEQ in DEXTROSE 5% WATER 1,000 ML IV SCH (08:21)
[2023-09-25] MEDS ORDERED: POTASSIUM PHOS,M-BASIC-D-BASIC 20 MMOL in DEXT 5% WATER 243.3333 ML IV NR (09:00)
[2023-09-25] MEDS: CEFEPIME 2,000 MG in DEXT 5% WATER 100 ML IV SCH (10:01)
[2023-09-25] MEDS: FUROSEMIDE 40MG/4ML VIAL IVP SCH (10:34)
[2023-09-25] MEDS: PANTOPRAZOLE SODIUM 40 MG/VIAL IV SCH (10:34)
[2023-09-25 10:55] LABS: ANISOCYTOSIS 2+; PLATELET ESTIMATE MARKEDLY DECREASED
[2023-09-25] MEDS: PHENYLEPHRINE 100 MG in DEXT 5% WATER 240 ML IV PRN ×2 (14:00→22:53)
[2023-09-25] MEDS: MEROPENEM 1,000 MG in SODIUM CHLORIDE 0.9% 100 ML IV SCH ×2 (15:20→21:31)
[2023-09-25] MEDS: BLOOD SUGAR DIAGNOSTIC STRIP TEST SCH ×2 (17:33→23:33)
[2023-09-25] MEDS ORDERED: DEXTROSE 50% WATER 50ML SYRINGE IV NR (17:45)
[2023-09-25] MEDS: DEXT 10% WATER 1,000 ML IV SCH (18:11)
[2023-09-26] VITALS (105 sets, daily range): BP systolic 82–107; BP diastolic 59–87; PULSE 97–120; RESP 20–36; TEMP 97.4–98.5
[2023-09-26] MEDS: IPRATROPIUM/ALBUTEROL 0.5-3(2.5)MG/3ML NEB HHN SCH ×4 (02:24→20:29)
[2023-09-26] MEDS: SODIUM BICARBONATE 100 MEQ in DEXTROSE 5% WATER 1,000 ML IV SCH (02:51)
[2023-09-26] MEDS: NOREPINEPHRINE 8MG/250ML PMX 250ML IV PRN (04:21)
[2023-09-26 05:12] LABS: HEMATOCRIT. 33.4 % (36.0-48.0); HEMOGLOBIN. 11.3 g/dL (12.0-16.0); MEAN CORPUSCULAR HEMOGLOBIN 32.1 pg (28.0-32.0); MEAN CORPUSCULAR HGB CONC 33.9 g/dL (31.0-37.0); MEAN CORPUSCULAR VOLUME 94.9 fL (81.0-99.0); MEAN PLATELET VOLUME 10.4 fl (7.4-10.4); RED BLOOD CELL COUNT 3.52 mill/uL (4.2-5.4); RED CELL DISTRIBUTION WIDTH 19.3 % (11.6-14.6); WHITE BLOOD COUNT 2.7 x1000/uL (4.5-11.0)
[2023-09-26 05:24] LABS: CHLORIDE 103 mEq/L (98-107); INDEX HEMOLYSI 4 (1-3); INDEX ICTERIC 1 (1-4); INDEX LIPEMIC 1 (1-3); SODIUM 139 mEq/L (136-145)
[2023-09-26 05:34] LABS: ALBUMIN 1.2 g/dL (3.4-5.0); CALCIUM 7.6 mg/dL (8.5-10.1); CARBON DIOXIDE 22 mEq/L (21-32); CREATININE 0.5 mg/dL (0.6-1.3); GLUCOSE 118 mg/dL (70-105); PHOSPHORUS 1.7 mg/dL (2.5-4.9); TRIGLYCERIDE 54 mg/dL (0-150); UREA NITROGEN BLOOD 7 mg/dL (7-21)
[2023-09-26 05:35] LABS: CHOLESTEROL < 50 mg/dL (<200)
[2023-09-26 05:36] LABS: POTASSIUM 3.9 mEq/L (3.5-5.1)
[2023-09-26] MEDS: MEROPENEM 1,000 MG in SODIUM CHLORIDE 0.9% 100 ML IV SCH ×3 (06:22→21:37)
[2023-09-26] MEDS: BLOOD SUGAR DIAGNOSTIC STRIP TEST SCH ×3 (06:23→17:38)
[2023-09-26] MEDS: CYANOCOBALAMIN 1000MCG TABLET PO SCH (06:24)
[2023-09-26 06:48] LABS: DIFFERENTIAL COMMENT 1
[2023-09-26 06:51] LABS: PLATELET 9 x1000/uL (130-400)
[2023-09-26] MEDS ORDERED: MAGNESIUM 2 G PREMIX 50 ML IV NR (07:30)
[2023-09-26] MEDS ORDERED: POTASSIUM PHOS,M-BASIC-D-BASIC 20 MMOL in DEXT 5% WATER 243.3333 ML IV NR (08:00)
[2023-09-26 08:22] LABS: ANISOCYTOSIS 2+; PLATELET ESTIMATE MARKEDLY DECREASED
[2023-09-26] MEDS: FUROSEMIDE 40MG/4ML VIAL IVP SCH (08:27)
[2023-09-26] MEDS: PANTOPRAZOLE SODIUM 40 MG/VIAL IV SCH (08:27)
[2023-09-26] MEDS: ALBUMIN HUMAN 25GM/100ML (25%) IV SCH (08:27)
[2023-09-26 10:18] LABS: BG BASE EXCESS -6.6 mmol/L (-2.0-2.0); BG CARBOXYHEMOGLOBIN 0.1 % (0.5-1.5); BG DEOXYHEMOGLOBIN 1.4 % (0.0-5.0); BG FRACTION INSPIRED OXYGEN 50; BG METHEMOGLOBIN 0.2 % (0.0-1.5); BG OXYGEN SATURATION 98.6 % (92.0-98.5); BG OXYHEMOGLOBIN 98.3 % (94.0-97.0); BG PCO2 28.6 mmHg (35.0-45.0); BG PH 7.391 (7.350-7.450); BG PO2 145.6 mmHg (75.0-100.0); BG SAMPLE SITE ALINE; BG TOTAL HEMOGLOBIN 12.6 g/dL (12.0-18.0); BG VENT MODE VENT - AC
[2023-09-26 15:42] LABS: INR 2.6; PROTHROMBIN TIME 26.7 sec (9.6-11.0)
[2023-09-26] MEDS: MIDAZOLAM HCL 100 MG in SODIUM CHLORIDE 0.9% 100 ML IV PRN (16:41)
[2023-09-26] MEDS: DEXT 10% WATER 1,000 ML IV SCH (17:39)
[2023-09-26] MEDS ORDERED: FLUCONAZOLE 400MG/200ML BAG 200 ML IV SCH (20:00)
[2023-09-26] MEDS: TOTAL PARENTERAL NUTRITION IV SCH (21:40)
[2023-09-26] MEDS: FAT EMULSIONS 500 ML IV SCH (21:42)
[2023-09-26] MEDS: PHENYLEPHRINE 100 MG in DEXT 5% WATER 240 ML IV PRN (21:46)
[2023-09-27] VITALS (100 sets, daily range): BP systolic 72–98; BP diastolic 47–78; PULSE 90–113; RESP 24–26; TEMP 97.3–98.2
[2023-09-27] MEDS: BLOOD SUGAR DIAGNOSTIC STRIP TEST SCH ×5 (00:09→21:21)
[2023-09-27] MEDS: IPRATROPIUM/ALBUTEROL 0.5-3(2.5)MG/3ML NEB HHN SCH ×3 (01:00→14:30)
[2023-09-27] MEDS ORDERED: MICAFUNGIN 100 MG in SODIUM CHLORIDE 0.9% 100 ML IV SCH ×2 (02:00→03:30)
[2023-09-27] MEDS: MEROPENEM 1,000 MG in SODIUM CHLORIDE 0.9% 100 ML IV SCH ×3 (05:27→21:35)
[2023-09-27 05:34] LABS: HEMATOCRIT. 27.1 % (36.0-48.0); MEAN CORPUSCULAR HEMOGLOBIN 34.4 pg (28.0-32.0); MEAN CORPUSCULAR VOLUME 93.1 fL (81.0-99.0); MEAN PLATELET VOLUME 8.7 fl (7.4-10.4); RED BLOOD CELL COUNT 2.91 mill/uL (4.2-5.4); RED CELL DISTRIBUTION WIDTH 18.7 % (11.6-14.6)
[2023-09-27 05:40] LABS: CHLORIDE 101 mEq/L (98-107); INDEX HEMOLYSI 4 (1-3); INDEX ICTERIC 1 (1-4); INDEX LIPEMIC 4 (1-3); SODIUM 136 mEq/L (136-145)
[2023-09-27 05:52] LABS: CARBON DIOXIDE 25 mEq/L (21-32); CREATININE 0.4 mg/dL (0.6-1.3); GLUCOSE 243 mg/dL (70-105)
[2023-09-27] MEDS: MIDAZOLAM HCL 100 MG in SODIUM CHLORIDE 0.9% 100 ML IV PRN (06:13)
[2023-09-27] MEDS: CYANOCOBALAMIN 1000MCG TABLET PO SCH (07:00)
[2023-09-27 07:12] LABS: CALCIUM 6.8 mg/dL (8.5-10.1); UREA NITROGEN BLOOD 6 mg/dL (7-21)
[2023-09-27 07:14] LABS: PHOSPHORUS 0.7 mg/dL (2.5-4.9); POTASSIUM 3.7 mEq/L (3.5-5.1)
[2023-09-27] MEDS ORDERED: DEXTROSE 50% WATER 50ML SYRINGE IV PRN (07:30)
[2023-09-27 07:49] LABS: WHITE BLOOD COUNT 1.4 x1000/uL (4.5-11.0)
[2023-09-27 07:50] LABS: DIFFERENTIAL COMMENT 1
[2023-09-27] MEDS: ALBUMIN HUMAN 25GM/100ML (25%) IV SCH (08:27)
[2023-09-27] MEDS: FUROSEMIDE 40MG/4ML VIAL IVP SCH (08:27)
[2023-09-27] MEDS: FENTANYL CITRATE 2,500 MCG in SODIUM CHLORIDE 0.9% 200 ML IV PRN (08:27)
[2023-09-27] MEDS: PANTOPRAZOLE SODIUM 40 MG/VIAL IV SCH (08:27)
[2023-09-27] MEDS: PHENYLEPHRINE 100 MG in DEXT 5% WATER 240 ML IV PRN ×2 (08:44→22:23)
[2023-09-27] MEDS ORDERED: POTASSIUM PHOS,M-BASIC-D-BASIC 30 MMOL in DEXT 5% WATER 500 ML IV NR (09:00)
[2023-09-27] MEDS ORDERED: MAGNESIUM 2 G PREMIX 50 ML IV NR (09:00)
[2023-09-27 09:04] LABS: INR 1.6; PROTHROMBIN TIME 16.5 sec (9.6-11.0)
[2023-09-27] MEDS: INSULIN LISPRO 100 UNITS/ML SUBCUT SCH ×3 (13:06→21:00)
[2023-09-27 13:39] LABS: ANISOCYTOSIS 2+; PLATELET 17 x1000/uL (130-400); PLATELET ESTIMATE MARKEDLY DECREASED
[2023-09-27] MEDS: TOTAL PARENTERAL NUTRITION IV SCH (21:40)
[2023-09-28] VITALS (111 sets, daily range): BP systolic 75–110; BP diastolic 34–76; PULSE 60–106; RESP 20–31; TEMP 97.3–98.6
[2023-09-28] MEDS: MICAFUNGIN 100 MG in SODIUM CHLORIDE 0.9% 100 ML IV SCH (02:42)
[2023-09-28 06:26] LABS: HEMATOCRIT. 25.2 % (36.0-48.0); HEMOGLOBIN. 8.7 g/dL (12.0-16.0); MEAN CORPUSCULAR HEMOGLOBIN 32.3 pg (28.0-32.0); MEAN CORPUSCULAR HGB CONC 34.5 g/dL (31.0-37.0); MEAN CORPUSCULAR VOLUME 93.6 fL (81.0-99.0); MEAN PLATELET VOLUME 8.7 fl (7.4-10.4); RED BLOOD CELL COUNT 2.69 mill/uL (4.2-5.4); RED CELL DISTRIBUTION WIDTH 17.9 % (11.6-14.6); WHITE BLOOD COUNT 2.2 x1000/uL (4.5-11.0)
[2023-09-28 06:30] LABS: INR 1.5; PROTHROMBIN TIME 15.5 sec (9.6-11.0)
[2023-09-28 06:38] LABS: CHLORIDE 102 mEq/L (98-107); INDEX HEMOLYSI 1 (1-3); INDEX ICTERIC 1 (1-4); INDEX LIPEMIC 1 (1-3); POTASSIUM 3.9 mEq/L (3.5-5.1); SODIUM 135 mEq/L (136-145)
[2023-09-28] MEDS: MEROPENEM 1,000 MG in SODIUM CHLORIDE 0.9% 100 ML IV SCH ×3 (06:48→21:39)
[2023-09-28] MEDS: INSULIN LISPRO 100 UNITS/ML SUBCUT SCH ×4 (06:49→21:00)
[2023-09-28 06:54] LABS: CALCIUM 7.7 mg/dL (8.5-10.1); CARBON DIOXIDE 31 mEq/L (21-32); CREATININE 0.4 mg/dL (0.6-1.3); GLUCOSE 179 mg/dL (70-105); UREA NITROGEN BLOOD 8 mg/dL (7-21)
[2023-09-28 06:59] LABS: DIFFERENTIAL COMMENT 1; PLATELET 5 x1000/uL (130-400)
[2023-09-28] MEDS: BLOOD SUGAR DIAGNOSTIC STRIP TEST SCH ×4 (07:00→21:36)
[2023-09-28 07:07] LABS: PHOSPHORUS 0.3 mg/dL (2.5-4.9)
[2023-09-28] MEDS ORDERED: SODIUM PHOS,M-BASIC-D-BASIC 30 MM in DEXT 5% WATER 500 ML IV NR (09:00)
[2023-09-28] MEDS: ALBUMIN HUMAN 25GM/100ML (25%) IV SCH (09:01)
[2023-09-28] MEDS: FUROSEMIDE 40MG/4ML VIAL IVP SCH (09:01)
[2023-09-28] MEDS: PANTOPRAZOLE SODIUM 40 MG/VIAL IV SCH (09:01)
[2023-09-28 09:25] LABS: BG BASE EXCESS 3.6 mmol/L (-2.0-2.0); BG FRACTION INSPIRED OXYGEN 40; BG HCO3 ACT 27.5 mmol/L (22.0-26.0); BG METHEMOGLOBIN 0.3 % (0.0-1.5); BG OXYHEMOGLOBIN 98.7 % (94.0-97.0); BG PCO2 39.1 mmHg (35.0-45.0); BG PH 7.465 (7.350-7.450); BG PO2 176.2 mmHg (75.0-100.0); BG SAMPLE SITE ALINE; BG TOTAL HEMOGLOBIN 10.6 g/dL (12.0-18.0); BG VENT MODE VENT - AC
[2023-09-28] MEDS: PHENYLEPHRINE 100 MG in DEXT 5% WATER 240 ML IV PRN (10:17)
[2023-09-28 12:04] LABS: ANISOCYTOSIS 1+; NUCLEATED RED BLOOD CELLS 1 /100 WBC
[2023-09-28 12:05] LABS: PLATELET ESTIMATE MARKEDLY DECREASED
[2023-09-28] MEDS ORDERED: TOTAL PARENTERAL NUTRITION IV SCH (21:00)
[2023-09-29] VITALS (102 sets, daily range): BP systolic 64–110; BP diastolic 40–83; PULSE 63–107; RESP 20–32; TEMP 98.2–99.1; O2SAT 100
[2023-09-29] MEDS: MICAFUNGIN 100 MG in SODIUM CHLORIDE 0.9% 100 ML IV SCH (02:00)
[2023-09-29 05:40] LABS: CHLORIDE 100 mEq/L (98-107); INDEX HEMOLYSI 1 (1-3); INDEX ICTERIC 1 (1-4); INDEX LIPEMIC 1 (1-3); POTASSIUM 3.4 mEq/L (3.5-5.1); SODIUM 136 mEq/L (136-145)
[2023-09-29 06:08] LABS: CALCIUM 7.9 mg/dL (8.5-10.1); CREATININE 0.3 mg/dL (0.6-1.3); GLUCOSE 174 mg/dL (70-105); PHOSPHORUS 1.3 mg/dL (2.5-4.9); UREA NITROGEN BLOOD 9 mg/dL (7-21)
[2023-09-29] MEDS: BLOOD SUGAR DIAGNOSTIC STRIP TEST SCH ×3 (06:12→16:29)
[2023-09-29] MEDS: MEROPENEM 1,000 MG in SODIUM CHLORIDE 0.9% 100 ML IV SCH ×3 (06:15→22:26)
[2023-09-29] MEDS: PHENYLEPHRINE 100 MG in DEXT 5% WATER 240 ML IV PRN (06:15)
[2023-09-29] MEDS: INSULIN LISPRO 100 UNITS/ML SUBCUT SCH ×3 (06:16→16:29)
[2023-09-29 06:24] LABS: HEMATOCRIT. 22.2 % (36.0-48.0); HEMOGLOBIN. 7.8 g/dL (12.0-16.0); MEAN CORPUSCULAR HEMOGLOBIN 32.4 pg (28.0-32.0); MEAN CORPUSCULAR HGB CONC 34.9 g/dL (31.0-37.0); MEAN CORPUSCULAR VOLUME 92.9 fL (81.0-99.0); MEAN PLATELET VOLUME 9.3 fl (7.4-10.4); RED BLOOD CELL COUNT 2.39 mill/uL (4.2-5.4); RED CELL DISTRIBUTION WIDTH 17.9 % (11.6-14.6); WHITE BLOOD COUNT 2.2 x1000/uL (4.5-11.0)
[2023-09-29 06:37] LABS: DIFFERENTIAL COMMENT 1
[2023-09-29 06:39] LABS: PLATELET 11 x1000/uL (130-400)
[2023-09-29] MEDS: FUROSEMIDE 40MG/4ML VIAL IVP SCH (08:57)
[2023-09-29] MEDS: PANTOPRAZOLE SODIUM 40 MG/VIAL IV SCH (08:57)
[2023-09-29] MEDS ORDERED: MAGNESIUM 2 G PREMIX 50 ML IV NR (09:30)
[2023-09-29] MEDS ORDERED: POTASSIUM PHOS,M-BASIC-D-BASIC 30 MMOL in DEXT 5% WATER 500 ML IV NR (10:00)
[2023-09-29 11:28] LABS: CARBON DIOXIDE 32 mEq/L (21-32)
[2023-09-29 14:28] LABS: PLATELET ESTIMATE MARKEDLY DECREASED
[2023-09-29 14:29] LABS: ROULEAUX 1+
[2023-09-29] MEDS: IPRATROPIUM/ALBUTEROL 0.5-3(2.5)MG/3ML NEB HHN PRN (20:51)
[2023-09-29] MEDS: TOTAL PARENTERAL NUTRITION IV SCH (22:24)
[2023-09-29] MEDS: FAT EMULSIONS 500 ML IV SCH (22:28)
[2023-09-29] MEDS ORDERED: DEXTROSE 50% WATER 50ML SYRINGE IV PRN (22:30)
[2023-09-30] VITALS (102 sets, daily range): BP systolic 73–117; BP diastolic 48–81; PULSE 60–108; RESP 19–35; TEMP 98.3–99
[2023-09-30] MEDS: BLOOD SUGAR DIAGNOSTIC STRIP TEST SCH ×4 (00:14→18:12)
[2023-09-30] MEDS: INSULIN LISPRO 100 UNITS/ML SUBCUT SCH ×4 (00:33→18:00)
[2023-09-30] MEDS: MICAFUNGIN 100 MG in SODIUM CHLORIDE 0.9% 100 ML IV SCH (02:26)
[2023-09-30 05:24] LABS: HEMATOCRIT. 22.4 % (36.0-48.0); HEMOGLOBIN. 7.9 g/dL (12.0-16.0); MEAN CORPUSCULAR HGB CONC 35.3 g/dL (31.0-37.0); MEAN CORPUSCULAR VOLUME 93.5 fL (81.0-99.0); MEAN PLATELET VOLUME 8.9 fl (7.4-10.4); RED CELL DISTRIBUTION WIDTH 17.8 % (11.6-14.6); WHITE BLOOD COUNT 3.2 x1000/uL (4.5-11.0)
[2023-09-30 05:27] LABS: CHLORIDE 95 mEq/L (98-107); INDEX HEMOLYSI 1 (1-3); INDEX ICTERIC 1 (1-4); INDEX LIPEMIC 3 (1-3); POTASSIUM 3.6 mEq/L (3.5-5.1); SODIUM 134 mEq/L (136-145)
[2023-09-30 05:32] LABS: CALCIUM 7.1 mg/dL (8.5-10.1); CARBON DIOXIDE 35 mEq/L (21-32); CREATININE 0.4 mg/dL (0.6-1.3); GLUCOSE 100 mg/dL (70-105); PHOSPHORUS 2.9 mg/dL (2.5-4.9)
[2023-09-30] MEDS: MEROPENEM 1,000 MG in SODIUM CHLORIDE 0.9% 100 ML IV SCH ×3 (06:36→20:43)
[2023-09-30] MEDS: PHENYLEPHRINE 100 MG in DEXT 5% WATER 240 ML IV PRN ×2 (06:37→20:42)
[2023-09-30 06:52] LABS: PLATELET 7 x1000/uL (130-400)
[2023-09-30 06:53] LABS: DIFFERENTIAL COMMENT 1
[2023-09-30] MEDS: FUROSEMIDE 40MG/4ML VIAL IVP SCH (08:18)
[2023-09-30] MEDS: PANTOPRAZOLE SODIUM 40 MG/VIAL IV SCH (08:18)
[2023-09-30 08:21] LABS: BG BASE EXCESS 6.8 mmol/L (-2.0-2.0); BG CARBOXYHEMOGLOBIN 0.3 % (0.5-1.5); BG DEOXYHEMOGLOBIN 1.2 % (0.0-5.0); BG HCO3 ACT 29.9 mmol/L (22.0-26.0); BG METHEMOGLOBIN 0.2 % (0.0-1.5); BG OXYGEN SATURATION 98.8 % (92.0-98.5); BG OXYHEMOGLOBIN 98.3 % (94.0-97.0); BG PCO2 36.3 mmHg (35.0-45.0); BG PH 7.533 (7.350-7.450); BG PO2 161.6 mmHg (75.0-100.0); BG SAMPLE SITE ALINE; BG TOTAL HEMOGLOBIN 9.1 g/dL (12.0-18.0); BG VENT MODE VENT - AC
[2023-09-30] MEDS ORDERED: BLOOD SUGAR DIAGNOSTIC STRIP TEST SCH (09:00)
[2023-09-30 10:20] LABS: UREA NITROGEN BLOOD 10 mg/dL (7-21)
[2023-09-30 12:05] LABS: NUCLEATED RED BLOOD CELLS 2 /100 WBC
[2023-09-30 12:06] LABS: PLATELET ESTIMATE MARKEDLY DECREASED
[2023-09-30 12:07] LABS: SMUDGE CELLS 1+
[2023-09-30] MEDS: TOTAL PARENTERAL NUTRITION IV SCH (21:16)
[2023-10-01] VITALS (83 sets, daily range): BP systolic 76–130; BP diastolic 42–95; PULSE 58–117; RESP 15–39; TEMP 97–97.6
[2023-10-01] MEDS: MICAFUNGIN 100 MG in SODIUM CHLORIDE 0.9% 100 ML IV SCH (02:55)
[2023-10-01] MEDS: MEROPENEM 1,000 MG in SODIUM CHLORIDE 0.9% 100 ML IV SCH ×3 (05:05→22:17)
[2023-10-01 05:31] LABS: MEAN CORPUSCULAR HEMOGLOBIN 31.4 pg (28.0-32.0); MEAN CORPUSCULAR HGB CONC 33.4 g/dL (31.0-37.0); MEAN PLATELET VOLUME 9.7 fl (7.4-10.4); RED BLOOD CELL COUNT 2.16 mill/uL (4.2-5.4); RED CELL DISTRIBUTION WIDTH 17.9 % (11.6-14.6); WHITE BLOOD COUNT 4.3 x1000/uL (4.5-11.0)
[2023-10-01 05:46] LABS: CHLORIDE 99 mEq/L (98-107); INDEX HEMOLYSI 1 (1-3); INDEX ICTERIC 1 (1-4); INDEX LIPEMIC 1 (1-3); POTASSIUM 3.6 mEq/L (3.5-5.1); SODIUM 139 mEq/L (136-145)
[2023-10-01] MEDS: BLOOD SUGAR DIAGNOSTIC STRIP TEST SCH ×4 (05:47→18:00)
[2023-10-01 05:49] LABS: CALCIUM 7.4 mg/dL (8.5-10.1); CARBON DIOXIDE 34 mEq/L (21-32); CREATININE 0.4 mg/dL (0.6-1.3); GLUCOSE 134 mg/dL (70-105); PHOSPHORUS 3.2 mg/dL (2.5-4.9); UREA NITROGEN BLOOD 11 mg/dL (7-21)
[2023-10-01] MEDS: INSULIN LISPRO 100 UNITS/ML SUBCUT SCH ×4 (05:59→18:00)
[2023-10-01 06:35] LABS: HEMATOCRIT. 20.3 % (36.0-48.0); HEMOGLOBIN. 6.8 g/dL (12.0-16.0)
[2023-10-01 06:36] LABS: DIFFERENTIAL COMMENT 1
[2023-10-01] MEDS: PHENYLEPHRINE 100 MG in DEXT 5% WATER 240 ML IV PRN (09:09)
[2023-10-01] MEDS: FUROSEMIDE 40MG/4ML VIAL IVP SCH (09:53)
[2023-10-01] MEDS: PANTOPRAZOLE SODIUM 40 MG/VIAL IV SCH (09:53)
[2023-10-01 10:35] LABS: ANISOCYTOSIS 1+; NUCLEATED RED BLOOD CELLS 3 /100 WBC; PLATELET ESTIMATE MARKEDLY DECREASED
[2023-10-01 10:36] LABS: PLATELET 34 x1000/uL (130-400)
[2023-10-01] MEDS: IPRATROPIUM/ALBUTEROL 0.5-3(2.5)MG/3ML NEB HHN SCH ×2 (14:54→18:39)
[2023-10-01] MEDS: TOTAL PARENTERAL NUTRITION IV SCH (22:00)
[2023-10-02] VITALS (73 sets, daily range): BP systolic 84–121; BP diastolic 53–90; PULSE 60–112; RESP 17–37; TEMP 98–100.6
[2023-10-02] MEDS: IPRATROPIUM/ALBUTEROL 0.5-3(2.5)MG/3ML NEB HHN SCH ×3 (00:10→15:55)
[2023-10-02] MEDS: BLOOD SUGAR DIAGNOSTIC STRIP TEST SCH ×4 (00:11→18:40)
[2023-10-02] MEDS: PHENYLEPHRINE 100 MG in DEXT 5% WATER 240 ML IV PRN ×2 (00:43→12:55)
[2023-10-02] MEDS: MICAFUNGIN 100 MG in SODIUM CHLORIDE 0.9% 100 ML IV SCH (01:23)
[2023-10-02 01:34] LABS: BASOPHILS % 0.7 % (0.0-2.0); EOSINOPHILS % 0.5 % (0.0-5.0); LYMPHOCYTES % 15.5 % (20.0-50.0); MEAN CORPUSCULAR HEMOGLOBIN 31.7 pg (28.0-32.0); MEAN CORPUSCULAR HGB CONC 33.4 g/dL (31.0-37.0); MEAN CORPUSCULAR VOLUME 94.9 fL (81.0-99.0); MEAN PLATELET VOLUME 10.4 fl (7.4-10.4); MONOCYTES % 10.5 % (2.0-8.0); NEUTROPHILS % 72.8 % (40.0-76.0); PLATELET 63 x1000/uL (130-400); RED BLOOD CELL COUNT 2.08 mill/uL (4.2-5.4); RED CELL DISTRIBUTION WIDTH 17.7 % (11.6-14.6); WHITE BLOOD COUNT 5.6 x1000/uL (4.5-11.0)
[2023-10-02 01:38] LABS: DIFFERENTIAL COMMENT 1
[2023-10-02 01:40] LABS: HEMATOCRIT. 19.8 % (36.0-48.0); HEMOGLOBIN. 6.6 g/dL (12.0-16.0)
[2023-10-02 02:03] LABS: CALCIUM 7.9 mg/dL (8.5-10.1); CARBON DIOXIDE 33 mEq/L (21-32); CHLORIDE 103 mEq/L (98-107); CREATININE 0.4 mg/dL (0.6-1.3); GLUCOSE 129 mg/dL (70-105); INDEX HEMOLYSI 3 (1-3); INDEX ICTERIC 1 (1-4); INDEX LIPEMIC 1 (1-3); POTASSIUM 3.5 mEq/L (3.5-5.1); SODIUM 140 mEq/L (136-145); UREA NITROGEN BLOOD 15 mg/dL (7-21)
[2023-10-02] MEDS: INSULIN LISPRO 100 UNITS/ML SUBCUT SCH ×4 (06:00→18:00)
[2023-10-02] MEDS: MEROPENEM 1,000 MG in SODIUM CHLORIDE 0.9% 100 ML IV SCH ×3 (06:04→21:15)
[2023-10-02] MEDS ORDERED: KCL 20MEQ/100ML PREMIX 100 ML IV NR (08:30)
[2023-10-02] MEDS: FUROSEMIDE 40MG/4ML VIAL IVP SCH (08:53)
[2023-10-02] MEDS: PANTOPRAZOLE SODIUM 40 MG/VIAL IV SCH (08:54)
[2023-10-02 11:58] LABS: INR 1.3; PROTHROMBIN TIME 13.7 sec (9.6-11.0)
[2023-10-02 12:09] LABS: ALBUMIN 1.4 g/dL (3.4-5.0); BILIRUBIN DIRECT 1.1 mg/dL (0.0-0.2); BILIRUBIN TOTAL 1.8 mg/dL (0.1-1.0); PROTEIN TOTAL 5.2 g/dL (6.0-8.3)
[2023-10-02 18:20] LABS: HEMOGLOBIN 7.9 g/dL (12.0-16.0); MEAN CORPUSCULAR HEMOGLOBIN 30.3 pg (28.0-32.0); MEAN CORPUSCULAR HGB CONC 32.9 g/dL (31.0-37.0); MEAN CORPUSCULAR VOLUME 92.1 fL (81.0-99.0); PLATELET 85 x1000/uL (130-400); RED BLOOD CELL COUNT 2.61 mill/uL (4.2-5.4); RED CELL DISTRIBUTION WIDTH 16.9 % (11.6-14.6); WHITE BLOOD COUNT 5.6 x1000/uL (4.5-11.0)
[2023-10-02] MEDS: TOTAL PARENTERAL NUTRITION IV SCH (21:15)
[2023-10-03] VITALS (83 sets, daily range): BP systolic 74–118; BP diastolic 52–81; PULSE 60–120; RESP 18–39; TEMP 97.5–100.9
[2023-10-03] MEDS: IPRATROPIUM/ALBUTEROL 0.5-3(2.5)MG/3ML NEB HHN SCH ×4 (00:23→20:22)
[2023-10-03 05:18] LABS: BASOPHILS % 0.4 % (0.0-2.0); EOSINOPHILS % 0.4 % (0.0-5.0); HEMATOCRIT. 23.6 % (36.0-48.0); HEMOGLOBIN. 7.9 g/dL (12.0-16.0); LYMPHOCYTES % 12.8 % (20.0-50.0); MEAN CORPUSCULAR HEMOGLOBIN 31.6 pg (28.0-32.0); MEAN CORPUSCULAR HGB CONC 33.6 g/dL (31.0-37.0); MEAN CORPUSCULAR VOLUME 93.9 fL (81.0-99.0); MEAN PLATELET VOLUME 10.7 fl (7.4-10.4); MONOCYTES % 12.3 % (2.0-8.0); NEUTROPHILS % 74.1 % (40.0-76.0); PLATELET 94 x1000/uL (130-400); RED BLOOD CELL COUNT 2.52 mill/uL (4.2-5.4); WHITE BLOOD COUNT 7.2 x1000/uL (4.5-11.0)
[2023-10-03 05:32] LABS: CHLORIDE 102 mEq/L (98-107); INDEX HEMOLYSI 1 (1-3); INDEX ICTERIC 1 (1-4); INDEX LIPEMIC 1 (1-3); POTASSIUM 3.2 mEq/L (3.5-5.1); SODIUM 139 mEq/L (136-145)
[2023-10-03 05:39] LABS: CALCIUM 7.7 mg/dL (8.5-10.1); CARBON DIOXIDE 32 mEq/L (21-32); CREATININE 0.3 mg/dL (0.6-1.3); GLUCOSE 133 mg/dL (70-105); UREA NITROGEN BLOOD 16 mg/dL (7-21)
[2023-10-03] MEDS: INSULIN LISPRO 100 UNITS/ML SUBCUT SCH ×4 (06:00→18:00)
[2023-10-03] MEDS: BLOOD SUGAR DIAGNOSTIC STRIP TEST SCH ×4 (06:13→18:34)
[2023-10-03] MEDS ORDERED: POTASSIUM CHLORIDE INJ 40 MEQ in DEXT 5% WATER 250 ML IV ONE (06:30)
[2023-10-03 06:44] LABS: DIFFERENTIAL COMMENT 1
[2023-10-03] MEDS: KCL 20MEQ/100ML X 2 FOR TOTAL KCL 40MEQ/200ML IV SCH ×2 (06:59→09:15)
[2023-10-03] MEDS: FUROSEMIDE 40MG/4ML VIAL IVP SCH (08:37)
[2023-10-03] MEDS: PANTOPRAZOLE SODIUM 40 MG/VIAL IV SCH (08:37)
[2023-10-03] MEDS ORDERED: PHYTONADIONE 10MG/ML INJ SUBCUT SCH (09:00)
[2023-10-03 16:38] LABS: INR 1.2; PARTIAL THROMBOPLASTIN TIME 33.7 sec (23.4-31.0); PROTHROMBIN TIME 12.3 sec (9.6-11.0)
[2023-10-03] MEDS ORDERED: TOTAL PARENTERAL NUTRITION IV SCH (21:00)
[2023-10-03] MEDS: FAT EMULSIONS 500 ML IV SCH (21:13)
[2023-10-04] VITALS (71 sets, daily range): BP systolic 63–98; BP diastolic 46–78; PULSE 60–110; RESP 23–42; TEMP 97.2–98.2
[2023-10-04] MEDS: BLOOD SUGAR DIAGNOSTIC STRIP TEST SCH ×4 (00:22→17:39)
[2023-10-04 01:17] LABS: BASOPHILS % 0.6 % (0.0-2.0); EOSINOPHILS % 1.5 % (0.0-5.0); HEMATOCRIT. 23.9 % (36.0-48.0); HEMOGLOBIN. 8.2 g/dL (12.0-16.0); LYMPHOCYTES % 10.7 % (20.0-50.0); MEAN CORPUSCULAR HEMOGLOBIN 32.4 pg (28.0-32.0); MEAN CORPUSCULAR HGB CONC 34.5 g/dL (31.0-37.0); MEAN CORPUSCULAR VOLUME 93.9 fL (81.0-99.0); MEAN PLATELET VOLUME 10.4 fl (7.4-10.4); MONOCYTES % 11.1 % (2.0-8.0); NEUTROPHILS % 76.1 % (40.0-76.0); PLATELET 114 x1000/uL (130-400); RED BLOOD CELL COUNT 2.55 mill/uL (4.2-5.4); RED CELL DISTRIBUTION WIDTH 17.1 % (11.6-14.6); WHITE BLOOD COUNT 6.8 x1000/uL (4.5-11.0)
[2023-10-04 01:22] LABS: DIFFERENTIAL COMMENT 1
[2023-10-04] MEDS: IPRATROPIUM/ALBUTEROL 0.5-3(2.5)MG/3ML NEB HHN SCH ×3 (04:29→17:03)
[2023-10-04] MEDS: PHENYLEPHRINE 100 MG in DEXT 5% WATER 240 ML IV PRN (04:46)
[2023-10-04 05:29] LABS: BASOPHILS % 0.4 % (0.0-2.0); EOSINOPHILS % 1.2 % (0.0-5.0); HEMATOCRIT. 24.2 % (36.0-48.0); HEMOGLOBIN. 8.5 g/dL (12.0-16.0); LYMPHOCYTES % 8.3 % (20.0-50.0); MEAN CORPUSCULAR HGB CONC 35.3 g/dL (31.0-37.0); MEAN CORPUSCULAR VOLUME 93.5 fL (81.0-99.0); MEAN PLATELET VOLUME 10.2 fl (7.4-10.4); MONOCYTES % 9.8 % (2.0-8.0); NEUTROPHILS % 80.3 % (40.0-76.0); PLATELET 116 x1000/uL (130-400); RED BLOOD CELL COUNT 2.59 mill/uL (4.2-5.4); RED CELL DISTRIBUTION WIDTH 16.7 % (11.6-14.6)
[2023-10-04 05:36] LABS: CHLORIDE 104 mEq/L (98-107); INDEX HEMOLYSI 1 (1-3); INDEX ICTERIC 1 (1-4); INDEX LIPEMIC 3 (1-3); POTASSIUM 3.7 mEq/L (3.5-5.1); SODIUM 140 mEq/L (136-145)
[2023-10-04 05:44] LABS: CALCIUM 8.3 mg/dL (8.5-10.1); CARBON DIOXIDE 32 mEq/L (21-32); CREATININE 0.4 mg/dL (0.6-1.3); GLUCOSE 127 mg/dL (70-105); UREA NITROGEN BLOOD 19 mg/dL (7-21)
[2023-10-04] MEDS: INSULIN LISPRO 100 UNITS/ML SUBCUT SCH ×4 (06:00→17:39)
[2023-10-04 06:57] LABS: DIFFERENTIAL COMMENT 1
[2023-10-04] MEDS: FUROSEMIDE 40MG/4ML VIAL IVP SCH (08:25)
[2023-10-04] MEDS: PANTOPRAZOLE SODIUM 40 MG/VIAL IV SCH (08:25)
[2023-10-04] MEDS ORDERED: FENTANYL CITRATE/PF 50MCG/ML 2ML VIAL IV PRN (09:15)
[2023-10-04] MEDS: MIDODRINE HCL 5MG TABLET PO SCH ×3 (11:59→17:49)
[2023-10-04] MEDS ORDERED: TOTAL PARENTERAL NUTRITION IV SCH (21:00)
[2023-10-05] VITALS (60 sets, daily range): BP systolic 77–100; BP diastolic 51–68; PULSE 60–109; RESP 16–42; TEMP 96.8–98.3; O2SAT 100
[2023-10-05] MEDS: BLOOD SUGAR DIAGNOSTIC STRIP TEST SCH ×5 (00:02→23:54)
[2023-10-05] MEDS: IPRATROPIUM/ALBUTEROL 0.5-3(2.5)MG/3ML NEB HHN SCH ×3 (00:14→16:08)
[2023-10-05] MEDS: INSULIN LISPRO 100 UNITS/ML SUBCUT SCH ×4 (06:00→17:57)
[2023-10-05 08:49] LABS: BG BASE EXCESS 4.5 mmol/L (-2.0-2.0); BG CARBOXYHEMOGLOBIN 0.3 % (0.5-1.5); BG DEOXYHEMOGLOBIN 1.4 % (0.0-5.0); BG FRACTION INSPIRED OXYGEN 30; BG HCO3 ACT 26.8 mmol/L (22.0-26.0); BG METHEMOGLOBIN 0.3 % (0.0-1.5); BG OXYGEN SATURATION 98.6 % (92.0-98.5); BG PCO2 30.9 mmHg (35.0-45.0); BG PH 7.556 (7.350-7.450); BG PO2 124.9 mmHg (75.0-100.0); BG SAMPLE SITE ALINE; BG TOTAL HEMOGLOBIN 8.3 g/dL (12.0-18.0); BG VENT MODE VENT - AC
[2023-10-05] MEDS: PANTOPRAZOLE SODIUM 40 MG/VIAL IV SCH (09:49)
[2023-10-05] MEDS: FUROSEMIDE 40MG/4ML VIAL IVP SCH (09:49)
[2023-10-05] MEDS: MIDODRINE HCL 5MG TABLET PO SCH ×3 (09:50→17:00)
[2023-10-05] MEDS ORDERED: PHEN10VI IV (16:09)
[2023-10-05] MEDS: PHENYLEPHRINE 100 MG in DEXT 5% WATER 240 ML IV PRN (23:40)
[2023-10-06] VITALS (17 sets, daily range): PULSE 86–103; RESP 20–40; TEMP 99.8
[2023-10-06] MEDS: INSULIN LISPRO 100 UNITS/ML SUBCUT SCH
[2023-10-06] MEDS: IPRATROPIUM/ALBUTEROL 0.5-3(2.5)MG/3ML NEB HHN SCH (00:35)
== END 2023-10-06 04:21 | disposition short-term general hospital (02) | DRG 710 ==
LOC: ER 08:36 → EDBEDREQTM 11:32 → EDBEDREQSVC 11:32 → EDBEDREQ 11:32 → MICUNO 21:45 → 5WST 09-16 19:51 → MICUSO 09-22 10:44
PROVIDERS: ADMIT Internal Medicine; ATTEND Internal Medicine
PROC: 05HY33Z Insertion of Infusion Device into Upper Vein, Percutaneous Approach (ICD-10-PCS; 2023-09-15)
PROC: B54MZZA Ultrasonography of Right Upper Extremity Veins, Guidance (ICD-10-PCS; 2023-09-15)
PROC: 5A1935Z Respiratory Ventilation, Less than 24 Consecutive Hours (ICD-10-PCS; 2023-09-15)
PROC: 0BH17EZ Insertion of Endotracheal Airway into Trachea, Via Natural or Artificial Opening (ICD-10-PCS; 2023-09-15)
PROC: 0DU907Z Supplement Duodenum with Autologous Tissue Substitute, Open Approach (ICD-10-PCS; 2023-09-15)
PROC: 30233N1 Transfusion of Nonautologous Red Blood Cells into Peripheral Vein, Percutaneous Approach (ICD-10-PCS; 2023-09-16)
PROC: 30233R1 Transfusion of Nonautologous Platelets into Peripheral Vein, Percutaneous Approach (ICD-10-PCS; 2023-09-18)
PROC: 5A1955Z Respiratory Ventilation, Greater than 96 Consecutive Hours (ICD-10-PCS; principal; 2023-09-22)
PROC: 0BH17EZ Insertion of Endotracheal Airway into Trachea, Via Natural or Artificial Opening (ICD-10-PCS; 2023-09-22)
PROC: 0W993ZZ Drainage of Right Pleural Cavity, Percutaneous Approach (ICD-10-PCS; 2023-09-23)
PROC: 04HY32Z Insertion of Monitoring Device into Lower Artery, Percutaneous Approach (ICD-10-PCS; 2023-09-24)
PROC: 06HY33Z Insertion of Infusion Device into Lower Vein, Percutaneous Approach (ICD-10-PCS; 2023-09-25)
DX: A41.81 Sepsis due to Enterococcus (principal); R65.21 Severe sepsis with septic shock; J95.821 Acute postprocedural respiratory failure; G62.81 Critical illness polyneuropathy; K26.5 Chronic or unspecified duodenal ulcer with perforation; G93.41 Metabolic encephalopathy; D61.818 Other pancytopenia; B37.89 Other sites of candidiasis; U07.1 COVID-19; R64 Cachexia; K65.8 Other peritonitis; I47.19 Other supraventricular tachycardia; D62 Acute posthemorrhagic anemia; E87.6 Hypokalemia; I25.10 Atherosclerotic heart disease of native coronary artery without angina pectoris; D69.6 Thrombocytopenia, unspecified; I50.22 Chronic systolic (congestive) heart failure; D53.9 Nutritional anemia, unspecified; E78.00 Pure hypercholesterolemia, unspecified; E83.39 Other disorders of phosphorus metabolism; E83.42 Hypomagnesemia; F01.50 Vascular dementia, unspecified severity, without behavioral disturbance, psychotic disturbance, mood disturbance, and anxiety; G89.29 Other chronic pain; I07.1 Rheumatic tricuspid insufficiency; J15.8 Pneumonia due to other specified bacteria; M48.061 Spinal stenosis, lumbar region without neurogenic claudication; M54.16 Radiculopathy, lumbar region; N39.0 Urinary tract infection, site not specified; R26.9 Unspecified abnormalities of gait and mobility; R53.81 Other malaise; R73.9 Hyperglycemia, unspecified; Z95.0 Presence of cardiac pacemaker; I25.2 Old myocardial infarction; Z87.891 Personal history of nicotine dependence; Z99.11 Dependence on respirator [ventilator] status; Z82.49 Family history of ischemic heart disease and other diseases of the circulatory system
CPT/HCPCS: 31500; 32555; 36415; 36573; 36600; 70551; 71045; 71275; 74018; 74176; 76604; 80048; 80053; 80076; 81003; 82040; 82375; 82465; 82784; 82805; 82962; 83010; 83036; 83605; 83615; 83735; 83880; 84100; 84145; 84478; 84484; 85025; 85027; 85044; 85049; 85362; 85379; 85384; 86334; 86705; 86709; 86803; 86850; 86900; 86920; 87070; 87075; 87077; 87186; 87340; 87389; 87426; 88108; 88305; 88312; 93005; 93306; 93970; 94002; 94003; 94640; 97162; 97166; 97530; 99291; A6261; C1725; C9113; J0690; J0692; J1100; J1170; J1450; J1815; J1940; J2185; J2248; J2250; J2270; J2370; J2405; J2704; J2710; J2765; J3010; J3430; J3475; J3480; J3490; J7030; J7050; J7060; J7070; J7120; P9016; P9034; P9041; P9047; Q9967; A4315